=== PATIENT | male | born 1955 | race Caucasian/White ===

== ENCOUNTER → 2019-01-11 16:14 | Outpatient (CLI) | payer MEDICARE, SELFPAY ==
[2019-01-11 16:45] LABS: Add Manual Diff / Slide Review NO; Basophils Absolute Auto 0 /uL (0-100); Basophils Percent Auto 0.3 % (0-2); Eosinophils Absolute Auto 200 /uL (0-450); Eosinophils Percent Auto 2.2 % (2-4); Hematocrit 37.6 % (41-53); Hemoglobin 12.4 g/dL (13.5-17.5); Lymphocytes Absolute Auto 1600 /uL (1100-4500); Lymphocytes Percent Auto 23.5 % (25-40); Mean Corpuscular HGB Conc 33.1 % (30-36); Mean Corpuscular Hemoglobin 30.7 PG (26-34); Mean Corpuscular Volume 92.7 fL (80-100); Monocytes Absolute Auto 700 /uL (0-900); Monocytes Percent Auto 10.4 % (3-14); Neutrophils Absolute Auto 4400 /uL (1500-7000); Neutrophils Percent Auto 63.6 % (50-75); Platelet Count 199 X10^3/uL (150-400); Red Blood Cell Count 4.06 X10^6/uL (4.5-5.9); Red Cell Distribution Width 17.2 % (11.6-14.8); White Blood Cell Count 6.9 X10^3/uL (4.5-11.0)
[2019-01-11 17:07] LABS: Blood Urea Nitrogen 12 mg/dL (9-20); Calcium 9.9 mg/dL (8.4-10.2); Carbon Dioxide 28 mmol/L (22-32); Chloride 102 mmol/L (98-107); Estimated Glomerular Filt Rate > 60.0 mL/min (>60); Glucose 102 mg/dL (80-110); HEMOLYSIS < 15 (0-50); Potassium 4.2 mmol/L (3.4-5.1); Sodium 141 mmol/L (137-145)
== END ==
PROVIDERS: Family Provider Family Medicine; PCP Family Medicine; Visit Provider Internal Medicine
DX: M48.062 Spinal stenosis, lumbar region with neurogenic claudication (principal); F32.9 Major depressive disorder, single episode, unspecified; I10 Essential (primary) hypertension
CPT/HCPCS: 36415; 80048; 85025

== ENCOUNTER → 2019-01-31 13:32 | Outpatient (CLI) | payer MEDICARE, SELFPAY ==
[2019-01-31 14:52] LABS: Add Manual Diff / Slide Review NO; Basophils Absolute Auto 0 /uL (0-100); Basophils Percent Auto 0.4 % (0-2); Eosinophils Absolute Auto 300 /uL (0-450); Eosinophils Percent Auto 3.8 % (2-4); Hematocrit 37.1 % (41-53); Lymphocytes Absolute Auto 1300 /uL (1100-4500); Lymphocytes Percent Auto 18.8 % (25-40); Mean Corpuscular HGB Conc 32.3 % (30-36); Mean Corpuscular Hemoglobin 29.9 PG (26-34); Mean Corpuscular Volume 92.6 fL (80-100); Monocytes Absolute Auto 1000 /uL (0-900); Monocytes Percent Auto 14.1 % (3-14); Neutrophils Absolute Auto 4400 /uL (1500-7000); Neutrophils Percent Auto 62.9 % (50-75); Platelet Count 346 X10^3/uL (150-400); Red Blood Cell Count 4.01 X10^6/uL (4.5-5.9); Red Cell Distribution Width 18.4 % (11.6-14.8); White Blood Cell Count 7.1 X10^3/uL (4.5-11.0)
[2019-01-31 15:12] LABS: INR 1.1 (0.9-1.3)
[2019-01-31 15:14] LABS: PTT Partial Thromboplastin Tim 34 SECONDS (26.4-36.2)
[2019-01-31 15:25] LABS: Erythrocyte Sedimentation Rate 37 MM/HR (0-15)
[2019-01-31 16:45] LABS: BUN Creatinine Ratio 18.6 (6-22); Blood Urea Nitrogen 13 mg/dL (9-20); Calcium 9.7 mg/dL (8.4-10.2); Carbon Dioxide 24 mmol/L (22-32); Chloride 103 mmol/L (98-107); Estimated Glomerular Filt Rate > 60.0 mL/min (>60); Glucose 93 mg/dL (80-110); HEMOLYSIS < 15 (0-50); Potassium 4.4 mmol/L (3.4-5.1); Sodium 139 mmol/L (137-145)
[2019-01-31 16:46] LABS: Iron 127 ug/dL (49-181)
[2019-01-31 16:52] LABS: High Sensitivity CRP - Cardiac 6.5 mg/L (1.0-3.0); Prealbumin 21.6 mg/dL (17.6-36.0)
[2019-01-31 17:19] LABS: Ferritin 54.8 ng/mL (17.9-464)
[2019-01-31 22:39] LABS: HEMOLYSIS < 15 (0-50); Percent Iron Saturation 30 % (20-50); Total Iron Binding Capacity 419 ug/dL (261-462); Transferrin 327 mg/dL (206-381)
== END ==
PROVIDERS: PCP Internal Medicine; Visit Provider Internal Medicine
DX: D64.9 Anemia, unspecified (principal); R63.4 Abnormal weight loss; Z01.818 Encounter for other preprocedural examination
CPT/HCPCS: 36415; 80048; 82728; 83540; 83550; 84134; 85025; 85610; 85651; 85730; 86140

== ENCOUNTER 2019-03-16 12:44 | Emergency (ER) | payer MEDICARE, SELFPAY ==
[2019-03-16 12:45] VITALS: BP 157/112; PULSE 84; RESP 14; TEMP 36.7; O2SAT 96
--- NOTE | 2019-03-16 12:46 | ED_ITS ---
HPI - General Adult General Chief complaint: Back Pain/Injury Stated complaint: swelling mass on his back Time Seen by Provider: 03/16/19 12:46 Source: patient Mode of arrival: ambulatory Limitations: no limitations History of Present Illness HPI narrative: Approximately 1 month ago patient went a lower lumbar laminectomy at [facility]. He states that since that time he has had some swelling in his lower back which seemed to go away with icing but then would return. No fevers. He went to his primary doctor today to have the stitches removed and after they evaluate the patient to notice swelling the patient's stated that his primary doctor told him he should go back to by [facility] however when they called [facility] he was told to come to the nearest emergency department. Denies any fevers. Minimal pain. No drainage from the area. Related Data Home Medications Medication Instructions Recorded Confirmed acetaminophen 1,000 mg PO QID PRN 03/16/19 03/16/19 amlodipine 5 mg PO DAILY 03/16/19 03/16/19 ferrous sulfate 325 mg PO DAILY 03/16/19 03/16/19 mvoaufrcvvmz-khi-doel-FA-vit K 1 tab PO DAILY 03/16/19 03/16/19 [Adults Multivitamin] ondansetron 4 mg PO Q8H PRN 03/16/19 03/16/19 Previous Rx's Medication Instructions Recorded fluoxetine 20 mg PO QDAY #90 tab 12/04/16 omeprazole 20 mg PO QDAY #90 cap 12/04/16 lisinopril 20 mg tablet 20 mg PO BID #60 tab 10/06/18 Allergies Allergy/AdvReac Type Severity Reaction Status Date / Time No Known Drug Allergies Allergy Verified 03/16/19 12:58 Review of Systems Constitutional Denies fever(s) Cardiovascular Denies chest pain and Denies dyspnea Respiratory Denies dyspnea Gastrointestinal Gastrointestinal: Denies abdominal pain Musculoskeletal Denies myalgias and Denies arthralgias Integumentary/Breasts Comments: Well-healing surgical scar lower back Neurologic Denies behavioral changes Psychiatric Denies behavioral changes Hematologic/Lymphatic Denies easy bleeding and Denies easy bruising [facility] Medical History Hypertension (Acute) Surgical History History of spinal fusion (06/26/15) Family History (Updated 04/18/15 @ 00:00 by Conversion Provider) Brother Age: 71 Heart disease Social History Smoking Status: Former smoker Family History (Updated 04/18/15 @ 00:00 by Conversion Provider) Brother Age: 71 Heart disease Social History Smoking Status: Former smoker Exam Initial Vital Signs Initial Vital Signs: Vital Signs Temperature 98.1 F 03/16/19 12:45 Pulse Rate 84 03/16/19 12:45 Respiratory Rate 14 03/16/19 12:45 Blood Pressure 157/112 H 03/16/19 12:45 Pulse Oximetry 96 03/16/19 12:45 Const General: cooperative, comfortable, well developed, well groomed and No acute di stress Orientation: alert and awake HENMT Head: normal to inspection and normocephalic Resp Effort & Inspection: normal respiratory effort Auscultation: clear to auscultation bilaterally Cardio Rate: regular rate Rhythm: regular rhythm Pulses: radial pulses present Back/Spine/Pelvis Other: Patient with a football sized swelling in the lower lumbar region. Does not seem to be tender to palpation. Normal lying redness. Skin Other: Well healing surgical scar lower lumbar region. No drainage. Neuro General: alert and awake Extrem General: capillary refill normal Psych Appearance: grossly normal and well kempt Course Orders Ordered: ED Orders 03/16/19 13:08 Basic Metabolic Panel Stat C-Reactive Protein Quant Stat Complete Blood Count AUTO DIFF Stat Erythrocyte Sedimentation Rate Stat Lactate (Lactic Acid) Stat Procalcitonin Stat Vital Signs - 8 hr 03/16/19 12:45 03/16/19 14:02 03/16/19 16:05 Temperature 98.1 F 98.3 F Pulse Rate 84 66 73 Respiratory Rate 14 18 20 Blood Pressure 157/112 H 144/88 H Blood Pressure [Left Arm] 139/83 Pulse Oximetry 96 97 100 Medical Decision Making Lab Data Lab results reviewed: Yes I reviewed the patient's lab results. Result diagrams: 03/16/19 13:08 03/16/19 13:08 Lab Results 03/16/19 03/16/19 03/16/19 Range/Units 13:08 13:08 13:08 WBC 5.8 (4.5-11.0) X10^3/uL RBC 3.85 L (4.5-5.9) X10^6/uL Hgb 11.0 L (13.5-17.5) g/dL Hct 33.7 L (41-53) % MCV 87.6 (80-100) fL MCH 28.6 (26-34) PG MCHC 32.6 (30-36) % RDW 15.5 H (11.6-14.8) % Plt Count 273 (150-400) X10^3/uL Neut % (Auto) 63.3 (50-75) % Lymph % (Auto) 18.5 L (25-40) % Holmes % (Auto) 16.1 H (3-14) % Eos % (Auto) 1.7 L (2-4) % Baso % (Auto) 0.4 (0-2) % Neut # (Auto) 3700 (7318-9155) /uL Lymph # (Auto) 1100 (2875-7873) /uL Holmes # (Auto) 900 (0-900) /uL Eos # (Auto) 100 (0-450) /uL Baso # (Auto) 0 (0-100) /uL ESR 37 H (0-15) MM/HR Sodium 138 (137-145) mmol/L Potassium 3.8 (3.4-5.1) mmol/L Chloride 102 (98-107) mmol/L Carbon Dioxide 26 (22-32) mmol/L BUN 11 (9-20) mg/dL Creatinine 0.60 L (0.66-1.25) mg/dL Estimated GFR > 60.0 (>60) mL/min BUN/Creatinine Ratio 18.3 (6-22) Glucose 111 H (80-110) mg/dL Lactate (0.7-2.1) mmol/L Calcium 9.6 (8.4-10.2) mg/dL C-Reactive Protein 1.4 H (<1.0) mg/dL Procalcitonin < 0.05 (<0.5) ng/mL 03/16/19 Range/Units 13:08 WBC (4.5-11.0) X10^3/uL RBC (4.5-5.9) X10^6/uL Hgb (13.5-17.5) g/dL Hct (41-53) % MCV (80-100) fL MCH (26-34) PG MCHC (30-36) % RDW (11.6-14.8) % Plt Count (150-400) X10^3/uL Neut % (Auto) (50-75) % Lymph % (Auto) (25-40) % Holmes % (Auto) (3-14) % Eos % (Auto) (2-4) % Baso % (Auto) (0-2) % Neut # (Auto) (4009-0067) /uL Lymph # (Auto) (9769-2606) /uL Holmes # (Auto) (0-900) /uL Eos # (Auto) (0-450) /uL Baso # (Auto) (0-100) /uL ESR (0-15) MM/HR Sodium (137-145) mmol/L Potassium (3.4-5.1) mmol/L Chloride (98-107) mmol/L Carbon Dioxide (22-32) mmol/L BUN (9-20) mg/dL Creatinine (0.66-1.25) mg/dL Estimated GFR (>60) mL/min BUN/Creatinine Ratio (6-22) Glucose (80-110) mg/dL Lactate 0.9 (0.7-2.1) mmol/L Calcium (8.4-10.2) mg/dL C-Reactive Protein (<1.0) mg/dL Procalcitonin (<0.5) ng/mL MDM Narrative Medical decision making narrative: I discussed the case with the transfer center at [facility] about his case. I gave the transfer nurse the patient's information and physical exam and labs. She talked with the orthopedic provider who was in surgery who stated that based on my description the patient did not need to be emergently transferred. They stated that they would like to see him tomorrow in clinic. They are going to call him for an appointment. The patient was given a copy of his labs. He was also instructed that he should be receiving a call however he does not he should call them for an appointment. He was given return precautions. I do have a low suspicion for an abscess. Will hold on any antibiotics. Hold on any radiologic studies and let the orthopedic providers make that decision. I have a stronger suspicion for a seroma. Patient and his expressed understanding and agreement this plan. Discharge Plan Departure Patient Disposition: Home Clinical Impression: Post-operative complication Qualifiers: Surgical complication system/body Area: [id number] Encounter type: initial encounter Discharge Date/Time: 03/16/19 16:06 Interventions: ED Discharge Assessment Last Done: 03/16/19 16:05 Activity Restrictions/Additional Instructions: You should be receiving a call from the Orthopedic Spine Department from [facility] for a follow-up appointment tomorrow. Continue all of your medications as directed. Return to the emergency department for any new or worsening symptoms Prescriptions: No Action fluoxetine 20 MG tablet 20 mg PO QDAY Qty: 90 RF: 11 omeprazole 20 MG capsule,delayed release(DR/EC) 20 mg PO QDAY Qty: 90 RF: 3 lisinopril 20 mg tablet 20 mg PO BID Qty: 60 RF: 0 amlodipine 5 mg tablet 5 mg PO DAILY RF: 0 acetaminophen 500 mg Tablet 1,000 mg PO QID PRN (Reason: pain/fever) RF: 0 ferrous sulfate 325 mg (65 mg iron) Tablet,Delayed Release (Dr/Ec) 325 mg PO DAILY RF: 0 ondansetron 4 mg Tablet,Disintegrating 4 mg PO Q8H PRN (Reason: nausea / vomiting) RF: 0 Adults Multivitamin 18 mg iron-400 mcg-25 mcg Tablet 1 tab PO DAILY RF: 0 Referrals: Leonard Leal MD [Primary Care Provider] -
[2019-03-16 13:17] LABS: Add Manual Diff / Slide Review NO; Basophils Absolute Auto 0 /uL (0-100); Basophils Percent Auto 0.4 % (0-2); Eosinophils Absolute Auto 100 /uL (0-450); Eosinophils Percent Auto 1.7 % (2-4); Hematocrit 33.7 % (41-53); Lymphocytes Absolute Auto 1100 /uL (1100-4500); Lymphocytes Percent Auto 18.5 % (25-40); Mean Corpuscular HGB Conc 32.6 % (30-36); Mean Corpuscular Hemoglobin 28.6 PG (26-34); Mean Corpuscular Volume 87.6 fL (80-100); Monocytes Absolute Auto 900 /uL (0-900); Monocytes Percent Auto 16.1 % (3-14); Neutrophils Absolute Auto 3700 /uL (1500-7000); Neutrophils Percent Auto 63.3 % (50-75); Platelet Count 273 X10^3/uL (150-400); Red Blood Cell Count 3.85 X10^6/uL (4.5-5.9); Red Cell Distribution Width 15.5 % (11.6-14.8); White Blood Cell Count 5.8 X10^3/uL (4.5-11.0)
[2019-03-16 13:28] LABS: Lactate (Lactic Acid) 0.9 mmol/L (0.7-2.1)
[2019-03-16 13:36] LABS: BUN Creatinine Ratio 18.3 (6-22); Blood Urea Nitrogen 11 mg/dL (9-20); C-Reactive Protein Quant 1.4 mg/dL (<1.0); Calcium 9.6 mg/dL (8.4-10.2); Carbon Dioxide 26 mmol/L (22-32); Chloride 102 mmol/L (98-107); Estimated Glomerular Filt Rate > 60.0 mL/min (>60); Glucose 111 mg/dL (80-110); HEMOLYSIS < 15 (0-50); Potassium 3.8 mmol/L (3.4-5.1); Sodium 138 mmol/L (137-145)
[2019-03-16 13:42] LABS: Erythrocyte Sedimentation Rate 37 MM/HR (0-15)
[2019-03-16 13:50] LABS: Procalcitonin < 0.05 ng/mL (<0.5)
[2019-03-16 14:02] VITALS: BP 139/83; PULSE 66; RESP 18; TEMP 36.8; O2SAT 97
[2019-03-16 16:05] VITALS: BP 144/88; PULSE 73; RESP 20; O2SAT 100
== END 2019-03-16 16:06 | disposition home or self-care (01) ==
PROVIDERS: Emergency Provider Emergency Medicine; PCP Internal Medicine
DX: T81.9XXA Unspecified complication of procedure, initial encounter (principal); R22.9 Localized swelling, mass and lump, unspecified
CPT/HCPCS: 36591; 80048; 83605; 84145; 85025; 85651; 86140; 99283

== ENCOUNTER → 2021-07-03 07:36 | Outpatient (CLI) | payer MEDICARE, SELFPAY ==
--- NOTE | 2021-07-03 | DI.US.S_ITS ---
PROCEDURE: US ABD AORTA ANEURYSM SCREEN INDICATIONS: SCREENING TECHNIQUE: Real time scanning was performed of the aorta and iliac arteries, with image documentation. COMPARISON: None. FINDINGS: Aorta: Proximal aortic diameter measures 2.6 cm. Mid-aorta measures 2.3 cm. Distal aortic diameter is 2.0 cm. Trace plaque is noted. Iliac arteries: Right common iliac artery measures 1.4 cm. Left common iliac artery measures 1.1 cm. IMPRESSION: 1. 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 Recommend 5 year follow-up. 2. No abdominal aortic aneurysm. Dictated by: Lito Mariano M.D. on 07/03/2021 at 9:55 Approved by: Lito Mariano M.D. on 07/03/2021 at 9:56
== END ==
PROVIDERS: PCP Internal Medicine; Referring Provider Internal Medicine; Visit Provider Internal Medicine
DX: Z13.6 Encounter for screening for cardiovascular disorders (principal); I77.811 Abdominal aortic ectasia
CPT/HCPCS: 76706

== ENCOUNTER → 2022-02-18 11:05 | Outpatient (CLI) | payer OTHER, SELFPAY ==
[2022-02-18 12:13] LABS: COVID19 -Nasal RAPID Negative (Negative)
== END ==
PROVIDERS: PCP Internal Medicine; Visit Provider Surgery
DX: Z20.822 Contact with and (suspected) exposure to COVID-19 (principal); Z01.812 Encounter for preprocedural laboratory examination
CPT/HCPCS: 87635; C9803

== ENCOUNTER 2022-02-19 07:32 | Day surgery (SDC) | payer OTHER, SELFPAY ==
[2022-02-12 12:48] VITALS: BMI 31.7
[2022-02-19] VITALS (11 sets, daily range): BP systolic 124–159; BP diastolic 74–98; PULSE 70–96; RESP 10–16; TEMP 36.2–37.1; O2SAT 90–98; BMI 30.9
[2022-02-19] MEDS: LACTATED RINGERS 1,000 ML 100 ML IV (08:14)
--- NOTE | 2022-02-19 08:30 | PM.PREOP ---
Pre-operative Note Interval Note History & Physical reviewed/Exam performed by Physician: Yes Changes to H&P: No
--- NOTE | 2022-02-19 08:35 | PM.OP.1 ---
Operative Date/Time/Diagnoses Date of procedure: 02/19/22 Time of procedure: 08:36 Pre-op diagnosis: right inguinal hernia Post-op diagnosis: same Procedure & Clinicians Procedure: open right inguinal hernia repair Same procedure as scheduled: Yes Indications: reducible right inguinal hernia Surgeon: Neftaly Abreu Anesthesia Type: General Operative Notes Findings: Large bowel containing indirect hernia. No direct floor defect. Specimen(s): none sent Estimated Blood Loss (mL): 10 Procedure in detail: The patient was placed supine on the table and bilateral lower extremity compression devices were applied. Anesthesia was induced they were intubated with an LMA and received Ancef. A time-out was performed. They were prepped and draped in sterile fashion. The right external inguinal ring and the anterior superior iliac crest were identified and marked. 1 finger breath above the inguinal ligament the skin was infiltrated with 0.25% bupivacaine. The skin incision was made here and the subcutaneous tissues were divided with electrocautery exposing the external oblique aponeurosis which was then opened along the direction of its fibers. The cord was carefully dissected away from the inguinal canal adjacent to the pubic tubercle. The cord including the vas deferens, testicular bloody supply, ilioguinal and genital nerve were encircled with a Elsa drain. No direct floor defect was identified. The cremasteric fibers surrounding the cord were divided using electrocautery adjacent to the internal ring. There was a large bowel containing indirect hernia which was seperated from the cord. The vas deferens and the testicular vessels were preserved and protected. The indirect hernia was skeletonized back to the internal ring and reduced spontaneously into the abdomen. I selected a 7x 15 cm lightweight Pro Loop hernia mesh. The inferior medial aspect of the mesh was anchored to insertion of the rectus muscle to the pubic tubercle such that there was approximately 2 cm of tubercle overlap with Ethibond and then was run continuously along the inferior edge of the mesh to the shelving edge of the inguinal ligament. Interrupted 3 0 Vicryl suture was used to anchor the superior aspect of the mesh to the conjoined tendon in several places. A plug of mesh was placed into the internal ring and secured to the adjacent fascia. The tails were then reapproximated loosely around the spermatic cord. The tails of the mesh were then tucked under the external oblique aponeurosis. The repair was checked for hemostasis. The wound was irrigated with sterile saline. The external oblique aponeurosis was reapproximated in a running fashion using 3 0 Vicryl. The subcutaneous tissues were reapproximated with 3 0 Vicryl skin closed with 4 0 Monocryl followed by the application of Dermabond. At the end of the operation I ensured that both testicles were within the scrotum. The sponge instrument count at the end operation was correct. The patient emerged from anesthesia was extubated and transferred to the postoperative care unit in stable condition. A total of 30 ml of of 0.25% bupivicaine was used to infiltrate the skin. Complications: none Post-operative Condition: stable Disposition: same day surgery
[2022-02-19] MEDS: CEFAZOLIN 2 GM/20 ML SYRINGE IV (08:57)
--- NOTE | 2022-02-19 09:01 | SUR.OPER ---
Supine on padded OR bed, head on pillow, arms secured on padded arm boards at <90 degrees abduction, legs uncrossed, safety belt at thigh. directed and approved by surgical attending
[2022-02-19] MEDS: BUPIVACAINE 0.25% (PF) VIAL 30 ML INJ (09:08)
[2022-02-19] MEDS: OXYCODONE IR 5 MG TABLET PO (10:32)
[2022-02-19] MEDS: ACETAMINOPHEN 325 MG TABLET 650 MG PO (10:32)
--- NOTE | 2022-02-19 11:26 | SUR.PHASEII ---
Pt getting dressed. Ready for Discharge. Son called. Will be here at 12DD:30. Pt to rest in bed and ice groin. Drinking coffee at this time.
--- NOTE | 2022-02-19 12:10 | SUR.PHASEII ---
Report to Kevin YO
== END 2022-02-19 12:30 | disposition home or self-care (01) ==
PROVIDERS: PCP Internal Medicine; Referring Provider Surgery; Visit Provider Surgery
PROC: (CPT 49505; principal; 2022-02-19 08:45)
DX: K40.90 Unilateral inguinal hernia, without obstruction or gangrene, not specified as recurrent (principal); I10 Essential (primary) hypertension; G47.33 Obstructive sleep apnea (adult) (pediatric); K21.9 Gastro-esophageal reflux disease without esophagitis; F41.9 Anxiety disorder, unspecified; E78.5 Hyperlipidemia, unspecified
CPT/HCPCS: 49505; 82962; J0690; J1885; J2405; J2704; J3010

== ENCOUNTER → 2022-06-05 10:31 | Outpatient (CLI) | payer OTHER, SELFPAY ==
--- NOTE | 2022-06-05 | DI.RAD.S_ITS ---
PROCEDURE: XR SHOULDER LT MIN 2V INDICATIONS: cough post-covid TECHNIQUE: 3 views of the shoulder were acquired. COMPARISON: [facility], , SHOULDER MINIMUM 2 VIEW LEFT, 04/19/2015, 14:56. FINDINGS: Bones: No acute fractures or dislocations. No suspicious bony lesions. Visualized ribs appear intact. Moderate degenerative changes of the left acromioclavicular joint. Mild degenerative changes of the glenohumeral joint. Postsurgical changes of cervical thoracic spinal fusion and anterior cervical fusion. No evidence for hardware failure. Soft tissues: No suspicious soft tissue calcifications. IMPRESSION: Left shoulder without acute fracture or dislocation. 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 Dictated by: Enrike Naidu M.D. on 06/05/2022 at 11:01 Approved by: Enrike Naidu M.D. on 06/05/2022 at 11:03
== END ==
PROVIDERS: PCP Internal Medicine; Referring Provider Internal Medicine; Visit Provider Internal Medicine
DX: M25.512 Pain in left shoulder (principal); G89.29 Other chronic pain
CPT/HCPCS: 73030

== ENCOUNTER → 2022-11-10 11:02 | Outpatient (CLI) | payer MEDICARE, SELFPAY ==
[2022-11-10 12:20] LABS: Add Manual Diff / Slide Review NO; Basophils Absolute Auto 0 /uL (0-100); Basophils Percent Auto 0.2 % (0-2); Eosinophils Absolute Auto 300 /uL (0-450); Eosinophils Percent Auto 4.1 % (2-4); Lymphocytes Absolute Auto 1900 /uL (1100-4500); Lymphocytes Percent Auto 28.1 % (25-40); Mean Corpuscular HGB Conc 33.2 % (30-36); Mean Corpuscular Hemoglobin 27.7 PG (26-34); Mean Corpuscular Volume 83.3 fL (80-100); Monocytes Absolute Auto 500 /uL (0-900); Monocytes Percent Auto 7.8 % (3-14); Neutrophils Absolute Auto 4000 /uL (1500-7000); Neutrophils Percent Auto 59.8 % (50-75); Platelet Count 316 X10^3/uL (150-400); Red Blood Cell Count 4.68 X10^6/uL (4.5-5.9); Red Cell Distribution Width 14.8 % (11.6-14.8); White Blood Cell Count 6.6 X10^3/uL (4.5-11.0)
[2022-11-10 12:31] LABS: Hemoglobin A1C% w Est Avg Glu 5.8 % (4.0-6.0)
[2022-11-10 12:47] LABS: Alanine Aminotransferase 21 IU/L (<50); Albumin 4.1 g/dL (3.5-5.0); Albumin Globulin Ratio 1.2 (1.0-2.8); Alkaline Phosphatase 77 U/L (38-126); Aspartate Aminotransferase 28 IU/L (17-59); BUN Creatinine Ratio 23.5 (6-22); Bilirubin Total 0.3 mg/dL (0.2-1.3); Blood Urea Nitrogen 16 mg/dL (9-20); Calcium 8.8 mg/dL (8.4-10.2); Carbon Dioxide 29 mmol/L (22-32); Chloride 105 mmol/L (98-107); Cholesterol 177 mg/dL (140-199); Estimated Glomerular Filt Rate > 60 mL/min (>60); Globulin 3.4 g/dL (1.7-4.1); Glucose 94 mg/dL (80-110); HDL Cholesterol 40 mg/dL (40-60); HEMOLYSIS < 15 (0-50); LDL Cholesterol Calculated 124 mg/dL (<100); Potassium 4.1 mmol/L (3.4-5.1); Sodium 143 mmol/L (137-145); Total Protein 7.5 g/dL (6.3-8.2); Triglycerides 65 mg/dL (35-150)
[2022-11-10 13:17] LABS: Prostate Specific Antigen Scrn 1.32 ng/mL (0.1-4.0)
== END ==
PROVIDERS: PCP Family Medicine; Referring Provider Family Medicine; Visit Provider Family Medicine
DX: E78.5 Hyperlipidemia, unspecified (principal); Z12.5 Encounter for screening for malignant neoplasm of prostate; I10 Essential (primary) hypertension; G47.33 Obstructive sleep apnea (adult) (pediatric); N40.1 Benign prostatic hyperplasia with lower urinary tract symptoms; R39.14 Feeling of incomplete bladder emptying; Z78.9 Other specified health status
CPT/HCPCS: 36415; 80053; 80061; 83036; 85025; G0103

== ENCOUNTER → 2022-11-14 10:27 | Outpatient (CLI) | payer MEDICARE, SELFPAY ==
--- NOTE | 2022-11-14 10:29 | DI.US.S_ITS ---
PROCEDURE: US PERIPH VENOUS LOW EXTREM RT INDICATIONS: Please evaluate for DVT TECHNIQUE: Real-time imaging, as well as color and pulse Doppler interrogation, were performed of the lower extremity deep veins from the inguinal ligament to the popliteal fossa. COMPARISON: None. FINDINGS: The common femoral, femoral and popliteal veins are normally compressible, and free of intraluminal thrombus. Color and pulse Doppler demonstrate normal phasic intraluminal flow. There is normal augmentation response to distal compression maneuver. There is a Sibley's cyst seen that measures 5.2 x 1.8 x 2.4 cm, which demonstrates a complex appearance, without abnormal vascularity. IMPRESSION: Negative for deep venous thrombosis. Complex Sibley's cyst noted, likely with internal hemorrhage. Dictated by: Albert Olsen M.D. on 11/14/2022 at 11:06 Approved by: Albert Olsen M.D. on 11/14/2022 at 11:07
== END ==
PROVIDERS: PCP Family Medicine; Referring Provider Family Medicine; Visit Provider Family Medicine
DX: M79.89 Other specified soft tissue disorders (principal); M71.21 Synovial cyst of popliteal space [Baker], right knee
CPT/HCPCS: 93971

== ENCOUNTER 2023-01-10 00:26 | Emergency (ER) | payer MEDICARE, SELFPAY ==
[2023-01-10 01:00] VITALS: BP 123/64; PULSE 76; RESP 16; TEMP 36.9; O2SAT 96; BMI 36.3
--- NOTE | 2023-01-10 01:19 | DI.CT.S_ITS ---
PROCEDURE: CT SOFT TISSUE NECK W CON INDICATIONS: R sided neck jaw swelling, rapidly worsening, trouble swallo TECHNIQUE: After the administration of intravenous contrast, 3.0 mm axial sections acquired from the sella to the aortic arch. Additional oblique axial 3.0 mm sections acquired through the pharynx. 3 mm thick coronal and sagittal reformats were generated. For radiation dose reduction, the following was used: automated exposure control. COMPARISON: None. FINDINGS: Image quality: Somewhat limited given artifact from dental and spinal hardware. Lymph nodes: No enlarged lymph nodes seen throughout the neck. Vessels: Visualized vasculature appears patent. Calcifications are noted at the carotid bifurcations with less than 50 percent stenosis within limits of this non dedicated study. Neck spaces: The oropharynx, nasopharynx, and pharynx demonstrate no mucosal lesions. The vocal cords, false vocal cords, pyriform sinuses, epiglottis, vallecula, and tongue base all appear normal. Extramucosal spaces appear unremarkable. Glands: The left parotid and submandibular glands are unremarkable. There is slight heterogeneous enhancement of the right parotid gland. There is inflammation extending along the inferior aspect of the parotid gland into the cervical soft tissues adjacent to the superior aspect of the submandibular gland along the sternocleidomastoid muscle. The platysma is mildly thickened. Thyroid gland is unremarkable. Miscellaneous: Visualized brain and orbits appear normal. Lung apices appear clear. Superficial soft tissues appear normal. Bones: Diffuse postsurgical changes of the cervical and upper thoracic spine limited by hardware artifact. No acute osseous abnormality. There is moderate left temporomandibular joint degenerative changes. Visualized sinuses and mastoids appear unremarkable. IMPRESSION: Findings most consistent with right parotitis. Agree with preliminary report. Dictated by: Amilcar Kim D.O. on 01/10/2023 at 9:36 Approved by: Amilcar Kim D.O. on 01/10/2023 at 9:41
--- NOTE | 2023-01-10 01:21 | ED.SKABFB ---
HPI - Skin/Abscess/Foreign Bdy General Chief complaint: Skin/Abscess/Foreign Body Stated complaint: lt. cheek swollen/numb Time Seen by Provider: 01/10/23 00:40 Source: patient Mode of arrival: Ambulatory Limitations: no limitations History of Present Illness HPI narrative: 67M former smoker with history of HTN presents with rapidly worsening R side face and jaw pain and swelling that started tonight at about midnight. He denies any injury. He denies fever, chills nor nausea or vomiting. He does state that when he was taking his night meds it was hard for him to swallow. He is not having trouble controlling secretions and denies any trouble breathing. He denies any dental pain. Related Data Home Medications Medication Instructions Recorded Confirmed amlodipine 10 mg tablet 10 mg PO DAILY 01/30/22 12/15/22 cholecalciferol (vitamin D3) 50 50 mcg PO DAILY 01/30/22 12/15/22 mcg (2,000 unit) capsule coenzyme Q10 100 mg capsule 200 mg PO DAILY 01/30/22 12/15/22 (CoQ-10) rosuvastatin 10 mg tablet 10 mg PO DAILY 01/30/22 12/15/22 vitamin B complex no.10-FA 1 tab PO DAILY 01/30/22 12/15/22 magnesium glycinate 100 mg tablet 665 mg PO TID 02/12/22 12/15/22 Previous Rx's Medication Instructions Recorded omeprazole 20 mg capsule,delayed 20 mg PO QDAY #90 caps 12/04/16 release acetaminophen 325 mg capsule 650 mg PO QID PRN pain #60 caps 02/19/22 (Tylenol) tamsulosin 0.4 mg capsule (Flomax) 0.4 mg PO BEDTIME #90 caps 10/14/22 chlorthalidone 25 mg tablet 25 mg PO DAILY blood pressure #90 11/14/22 tabs escitalopram oxalate 10 mg tablet 10 mg PO DAILY #90 tabs 12/09/22 (Lexapro) Disabled parking permit #1 ea 12/15/22 Allergies Allergy/AdvReac Type Severity Reaction Status Date / Time No Known Drug Allergies Allergy Verified 12/15/22 10:01 Review of Systems Review of Systems Narrative: GENERAL: Denies chills, fatigue, malaise, fever, sweats. HEENT: See HPI RESPIRATORY: Denies dyspnea, cough, wheezing, hemoptysis, sputum. CARDIOVASCULAR: Denies chest pain, palpitations, orthopnea, edema, GASTROINTESTINAL: Denies nausea, vomiting, abdominal pain, diarrhea, constipation, melena. : Denies dysuria, frequency, incontinence, hematuria, urinary retention. MUSCULOSKELETAL: denies weakness, joint pain, or bony pain SKIN: Denies rash, skin lesions, or other NEUROLOGIC: Denies weakness, headache, numbness, change in speech, confusion, seizures, incoordination. PSYCHIATRIC: No concerning psychosocial issues. 12 point review of systems is negative except for those stated above Patient History Medical History ADHD Alcohol use Anxiety Arthritis Benign essential HTN Bowel obstruction BPH (benign prostatic hyperplasia) Cataracts, bilateral (~2009) Depression Gait instability GERD (gastroesophageal reflux disease) Gout Heart murmur Hemorrhoid History of arthritis Hyperlipidemia Kidney stones (~1993) Lumbar back pain (~2014) Neuropathy LINDA (obstructive sleep apnea) (~2005) Rupture of popliteal cyst Substance abuse Surgical History Anesthesia History of carpal tunnel surgery of left wrist (1992) History of hernia repair (~2021) History of lumbar surgery History of major orthopedic surgery History of orthopedic surgery History of spinal fusion (06/26/15) History of total left knee replacement (2013) Hx of colonoscopy (2013) Hx of removal of cyst (1994) S/P cervical spinal fusion (2017) S/P total knee arthroplasty Family History Brother Age: 75 Heart disease Cancer Father Diabetes mellitus Stroke Prostate cancer Mother Cancer Mental health problem Sister Alzheimer's disease Mental health problem Grandfather Liver disease Grandmother Congestive heart failure Mental health problem Grandfather Cancer Social History marital status: household members: spouse lives independently: Yes occupational status: previously employed Smoking Status: Former smoker alcohol intake: former Smoking Status: Former smoker alcohol intake frequency: other Substance Use Type: marijuana Exam Narrative Exam Narrative: GENERAL: [67] year old patient appears stated age. Well-developed patient, in mild distress. HEAD: Atraumatic. Normocephalic. EYES: Pupils equal round and reactive. Extraocular motions intact. No scleral icterus. No injection or drainage. ENT: Moderate swelling over right lateral jaw and superior neck, no erythema or fluctuance. Nose without bleeding, purulent drainage. Throat without erythema, tonsillar hypertrophy or exudate. Airway patent. NECK: See above Trachea midline. Non tender CARDIOVASCULAR: Regular rate and rhythm without murmurs, gallops, or rubs. RESPIRATORY: Clear to auscultation. Breath sounds equal bilaterally. No wheezes, rales, or rhonchi. GASTROINTESTINAL: Abdomen soft, non-tender, nondistended. EXTREMITIES: No edema or joint tenderness. BACK: Nontender without deformity or crepitance. No flank tenderness. NEURO: AOx3. SKIN: No rash or erythema of visible areas Initial Vital Signs Initial Vital Signs: Vital Signs Temperature 98.4 F 01/10/23 01:00 Pulse Rate 76 01/10/23 01:00 Respiratory Rate 16 01/10/23 01:00 Blood Pressure 123/64 01/10/23 01:00 Pulse Oximetry 96 01/10/23 01:00 Oxygen Delivery Method Room Air 01/10/23 01:00 Course Orders Ordered: ED Orders 01/10/23 01:19 CT soft tissue neck w con Stat 01/10/23 01:34 Complete Blood Count AUTO DIFF Stat Comprehensive Metabolic Panel Stat Discontinued Medications Amoxicillin/Clavulanate Potassium (Amoxicillin/Clav 875/125 Mg) 1 tab PO NOW ONE Stop: 01/10/23 03:17 Dexamethasone (Dexamethasone 10 Mg/Ml Vial) 10 mg IV NOW ONE Stop: 01/10/23 01:20 Last Admin: 01/10/23 01:49 Dose: 10 mg Documented By: ASIYA Ketorolac Tromethamine (Ketorolac 30 Mg/Ml Vial) 15 mg IV NOW ONE Stop: 01/10/23 01:20 Last Admin: 01/10/23 01:49 Dose: 15 mg Documented By: ASIYA Vital Signs Vital signs: Vital Signs - 8 hr 01/10/23 01:00 01/10/23 03:02 Temperature 98.4 F Pulse Rate 76 69 Respiratory Rate 16 18 Blood Pressure 123/64 123/72 Pulse Oximetry 96 97 Oxygen Delivery Method Room Air Room Air MDM - Skin/Abscess/Foreign Bdy Lab Data 01/10/23 01:34 01/10/23 01:34 Labs: Lab Results 01/10/23 01/10/23 Range/Units 01:34 01:34 WBC 10.2 (4.5-11.0) X10^3/uL RBC 5.06 (4.5-5.9) X10^6/uL Hgb 14.7 (13.5-17.5) g/dL Hct 43.1 (41-53) % MCV 85.1 (80-100) fL MCH 28.9 (26-34) PG MCHC 34.0 (30-36) % RDW 15.8 H (11.6-14.8) % Plt Count 251 (150-400) X10^3/uL Neut % (Auto) 55.9 (50-75) % Lymph % (Auto) 28.3 (25-40) % [place] % (Auto) 11.2 (3-14) % Eos % (Auto) 4.3 H (2-4) % Baso % (Auto) 0.3 (0-2) % Neut # (Auto) 5700 (7878-6557) /uL Lymph # (Auto) 2900 (6166-4110) /uL [place] # (Auto) 1100 H (0-900) /uL Eos # (Auto) 400 (0-450) /uL Baso # (Auto) 0 (0-100) /uL Sodium 140 (137-145) mmol/L Potassium 3.6 (3.4-5.1) mmol/L Chloride 99 (98-107) mmol/L Carbon Dioxide 27 (22-32) mmol/L BUN 20 (9-20) mg/dL Creatinine 0.91 (0.66-1.25) mg/dL Estimated GFR > 60 (>60) mL/min BUN/Creatinine Ratio 22.0 (6-22) Glucose 136 H (80-110) mg/dL Calcium 9.1 (8.4-10.2) mg/dL Total Bilirubin 0.5 (0.2-1.3) mg/dL AST 31 (17-59) IU/L ALT 31 (<50) IU/L Alkaline Phosphatase 66 (38-126) U/L Total Protein 8.3 H (6.3-8.2) g/dL Albumin 4.8 (3.5-5.0) g/dL Globulin 3.5 (1.7-4.1) g/dL Albumin/Globulin Ratio 1.4 (1.0-2.8) MDM Narrative Medical decision making narrative: [67] year old patient presents with sudden-onset right-sided face pain and swelling Multiple etiologies for patient's symptoms considered including, but not limited to: [Sialadenitis, abscess, versus other] Prior Charts reviewed in our EMR Primary Historian: patient Labs reviewed and interpreted by myself: Imaging reviewed: Right parotitis without evidence of abscess Patient's symptoms improved over duration of stay with above-stated therapies. Parotitis on imaging, no signs of abscess. No elevated white blood cells, no fever. No indication for antibiotics at this time. I discussed return precautions, encouraged close follow-up with ENT Findings and discharge diagnosis discussed with patient/family followed by verbalization of understanding Return precautions discussed with patient/family whom verbalize understanding of diagnosis and plan Discharge Plan Departure Patient Disposition: Home Clinical Impression: Acute parotitis Instructions: DI for Parotitis-Adult Activity Restrictions/Additional Instructions: *You have been diagnosed with [swollen parotid gland. As we discussed your history and physical exam are reassuring and in the absence of fever, obvious infection on imaging or labs there is no indication for antibiotics at this time.] *What to do: *Please consider the use of warm compresses, anti-inflammatories and also get yourself some hard candies which will help you increase saliva production which can help move this along. Otherwise continue to take your regular medications as directed * as we discussed please call Dr. Cheung at [facility] later this morning. Let the office know you were seen in the emergency department and we would like you seen in follow-up. I will electronically transmitted a copy of today's note to their office *Return to Emergency Department if you should have any new, worsening or concerning symptoms, such as [fever greater than 101 F, shaking chills, worsening pain, persistent vomiting or other bothersome symptoms] Prescriptions: No Action omeprazole 20 MG capsule,delayed release(DR/EC) 20 mg PO QDAY Qty: 90 3RF escitalopram oxalate [Lexapro] 10 mg tablet 10 mg PO DAILY Qty: 90 3RF tamsulosin [Flomax] 0.4 mg capsule 0.4 mg PO BEDTIME Qty: 90 3RF chlorthalidone 25 mg tablet 25 mg PO DAILY Qty: 90 3RF (DME) Disabled parking permit See Rx Instructions .ROUTE .MEDSUPPLY Qty: 1 0RF Rx Instructions: I find this patient to be medically disabled and qualified for disabled parking as indicated, and signed, on the accompanying disabled parking application for individuals. amlodipine 10 mg tablet 10 mg PO DAILY rosuvastatin 10 mg tablet 10 mg PO DAILY cholecalciferol (vitamin D3) 50 mcg (2,000 unit) capsule 50 mcg PO DAILY coenzyme Q10 [CoQ-10] 100 mg capsule 200 mg PO DAILY vitamin B complex no.10-FA 1 tab PO DAILY magnesium glycinate 100 mg Tablet 665 mg PO TID acetaminophen [Tylenol] 325 mg capsule 650 mg PO QID PRN (Reason: pain) Qty: 60 0RF Referrals: Chester Cheung MD [Physician] - Arnel Hammond DO [Primary Care Provider] - Stand Alone Forms: Patient Portal/API
[2023-01-10 01:49] LABS: Add Manual Diff / Slide Review NO; Basophils Absolute Auto 0 /uL (0-100); Basophils Percent Auto 0.3 % (0-2); Eosinophils Absolute Auto 400 /uL (0-450); Eosinophils Percent Auto 4.3 % (2-4); Hematocrit 43.1 % (41-53); Hemoglobin 14.7 g/dL (13.5-17.5); Lymphocytes Absolute Auto 2900 /uL (1100-4500); Lymphocytes Percent Auto 28.3 % (25-40); Mean Corpuscular Hemoglobin 28.9 PG (26-34); Mean Corpuscular Volume 85.1 fL (80-100); Monocytes Absolute Auto 1100 /uL (0-900); Monocytes Percent Auto 11.2 % (3-14); Neutrophils Absolute Auto 5700 /uL (1500-7000); Neutrophils Percent Auto 55.9 % (50-75); Platelet Count 251 X10^3/uL (150-400); Red Blood Cell Count 5.06 X10^6/uL (4.5-5.9); Red Cell Distribution Width 15.8 % (11.6-14.8); White Blood Cell Count 10.2 X10^3/uL (4.5-11.0)
[2023-01-10] MEDS: KETOROLAC 30 MG/ML VIAL 15 MG IV (01:49)
[2023-01-10] MEDS: DEXAMETHASONE 10 MG/ML VIAL IV (01:49)
[2023-01-10 01:56] LABS: Alanine Aminotransferase 31 IU/L (<50); Albumin 4.8 g/dL (3.5-5.0); Albumin Globulin Ratio 1.4 (1.0-2.8); Alkaline Phosphatase 66 U/L (38-126); Aspartate Aminotransferase 31 IU/L (17-59); Bilirubin Total 0.5 mg/dL (0.2-1.3); Blood Urea Nitrogen 20 mg/dL (9-20); Calcium 9.1 mg/dL (8.4-10.2); Carbon Dioxide 27 mmol/L (22-32); Chloride 99 mmol/L (98-107); Estimated Glomerular Filt Rate > 60 mL/min (>60); Globulin 3.5 g/dL (1.7-4.1); Glucose 136 mg/dL (80-110); HEMOLYSIS 16 (0-50); Potassium 3.6 mmol/L (3.4-5.1); Sodium 140 mmol/L (137-145); Total Protein 8.3 g/dL (6.3-8.2)
[2023-01-10 03:02] VITALS: BP 123/72; PULSE 69; RESP 18; O2SAT 97
== END 2023-01-10 03:30 | disposition home or self-care (01) ==
PROVIDERS: Emergency Provider Emergency Medicine; PCP Family Medicine
DX: K11.21 Acute sialoadenitis (principal)
CPT/HCPCS: 36415; 70491; 80053; 85025; 96374; 96375; 99284; J1100; J1885; Q9967

== ENCOUNTER → 2023-04-08 11:28 | Outpatient (CLI) | payer MEDICARE, SELFPAY ==
--- NOTE | 2023-04-08 11:30 | DI.RAD.S_ITS ---
PROCEDURE: XR FINGER LT MIN 2V INDICATIONS: finger deformity TECHNIQUE: AP hand, 2 views of the 3rd finger(s) acquired. COMPARISON: None. FINDINGS: Bones: No fractures or dislocations. No suspicious bony lesions. There is [id number]-gh-[id number] 1st carpometacarpal joint degeneration. Osteopenia. Soft tissues: No suspicious soft tissue calcifications. IMPRESSION: 1. No acute osseous abnormality. 2. Utawmzik-ce-ultcdv degenerative joint disease. 3. Osteopenia. Dictated by: Roderick Trinidad M.D. on 04/08/2023 at 13:47 Approved by: Roderick Trinidad M.D. on 04/08/2023 at 13:49
== END ==
PROVIDERS: PCP Family Medicine; Referring Provider Family Medicine; Visit Provider Family Medicine
DX: M19.042 Primary osteoarthritis, left hand (principal); M85.842 Other specified disorders of bone density and structure, left hand; M20.002 Unspecified deformity of left finger(s)
CPT/HCPCS: 73140

== ENCOUNTER → 2023-04-17 07:55 | Outpatient (CLI) | payer MEDICARE, SELFPAY ==
--- NOTE | 2023-04-17 07:56 | DI.US.S_ITS ---
PROCEDURE: US ABD AORTA ANEURYSM SCREEN INDICATIONS: screening TECHNIQUE: Real time scanning was performed of the aorta and iliac arteries, with image documentation. COMPARISON: [facility], , US ABD AORTA ANEURYSM SCREEN, 07/03/2021, 8:10. FINDINGS: Aorta: Proximal aortic diameter measures 1.4 cm. Mid-aorta measures 1.9 cm. Distal aortic diameter is three cm. Iliac arteries: Right common iliac artery measures 0.8 cm. Left common iliac artery measures 0 point cm. IMPRESSION: No sonographic evidence of abdominal aortic or iliac artery aneurysm. Dictated by: Rachelle Fernandez M.D. on 04/17/2023 at 9:58 Approved by: Rachelle Fernandez M.D. on 04/17/2023 at 9:59
--- NOTE | 2023-04-17 07:56 | DI.ECHO.S_ITS ---
[facility]---------+ [facility] +---------+ : : [address] : : : : [id number] : : : : Phone: [phone] Echocardiogram Report + + :Name: KAIDEN VIVEROS Study Date: 04/17/2023 Height: 64 in : :[facility] ReadingLocation: Weight: 210 lb : : Gender: Male BSA: 2.0 m2 : :: 1955 Age: 67 yrs BP: 146/90 mmHg: :Reason For Study: Essential Hypertension : :Ordering Physician: CRISTOPHER BERNARDO Performed By: Su Lind : :Referring: CRISTOPHER BERNARDO : + + Interpretation Summary The left ventricle is normal in size. There is mild concentric left ventricular hypertrophy. The ejection fraction is estimated to be 60-65%. The right ventricle is normal size. The right ventricular systolic function is normal. There is moderate mitral annular calcification. Some restriction of posterior mitral leaflet movement without any significant mitral stenosis. The aortic valve is moderately calcified. The peak aortic velocity is 3.37 m/sec. The aortic valve mean gradient is 26 mmHg. The calculated aortic valve area is 1.2 cm2. There is moderate aortic stenosis. The ascending aorta is mild-moderately enlarged. The IVC is of normal diameter and collapses greater than 50% with a sniff. This suggests a low right atrial pressure of 3 mm Hg. Procedure: A two-dimensional transthoracic echocardiogram with color flow and Doppler was performed. The study quality was technically adequate. There is no prior echocardiogram noted for this patient. The patient was in normal sinus rhythm during the exam. Left Ventricle: The left ventricle is normal in size. There is mild concentric left ventricular hypertrophy. There is no thrombus. The ejection fraction is estimated to be 60-65%. The left ventricular ejection fraction is normal. There are no focal wall motion abnormalities. MV E/A: 0.86 Med Peak E' Armen: 5.8 cm/sec E/E' med: 20.9. Right Ventricle: The right ventricle is normal size. The right ventricular systolic function is normal. Atria: The left atrial size is normal. Right atrial size is normal. There is no Doppler evidence for an interatrial shunt. Mitral Valve: There is moderate mitral annular calcification. The mitral valve leaflets are mildly calcified. The mitral valve chordae are thickened and/or calcified. Some restriction of posterior mitral leaflet movement without any significant mitral stenosis. No significant mitral valve stenosis. There is trace mitral regurgitation. Aortic Valve: The aortic valve is moderately calcified. The aortic valve is trileaflet. There is moderate aortic stenosis. The peak aortic velocity is 3.37 m/sec. The aortic valve mean gradient is 26 mmHg. The calculated aortic valve area is 1.2 cm2. No aortic regurgitation is present. Tricuspid Valve: The tricuspid valve is normal. There is no tricuspid stenosis. There is trace tricuspid regurgitation. The right ventricular systolic pressure is estimated to be at least 23 mmHg based on an estimated right atrial pressure of 3 mm Hg. Pulmonic Valve: The pulmonic valve is not well seen, but is grossly normal. There is no pulmonic valvular stenosis. There is no pulmonic valvular regurgitation. Great Vessels: The aortic root is normal size. The ascending aorta is mild- moderately enlarged. The pulmonary artery is normal size. The IVC is of normal diameter and collapses greater than 50% with a sniff. This suggests a low right atrial pressure of 3 mm Hg. Pericardium/ Pleura There is no pericardial effusion. There is an anterior echo-free space consistent with a fat pad. There is no pleural effusion. MMode/2D Measurements & Calculations LVIDd: 4.4 cm LVOT diam: 2.1 cm LVIDs: 3.2 cm Ao root diam: 3.5 cm FS: 27.3 % asc Aorta Diam: 4.2 cm IVSd: 1.2 cm LVPWd: 1.3 cm LV zuleta. diameter/BSA (cm/m^2): 2.2 LV sys. diameter/BSA (cm/m^2): 1.6 LA A2 area: 16.0 cm2 RA long axis: 4.9 cm LA A4 area: 18.7 cm2 RA area: 13.6 cm2 LA length (vol): 5.0 cm RA vol: 32.0 ml LA vol: 50.4 ml RA : 16.0 ml/m2 LA vol index: 25.2 ml/m2 RVD1 (basal): 3.4 cm LVLs ap4: 6.0 cm LVLd ap2: 7.2 cm TAPSE_phl: 2.2 cm LVLs ap2: 5.4 cm Doppler Measurements & Calculations Ao V2 max: 330.0 cm/sec LVOT Max Armen: 110.0 cm/sec Ao V2 mean: 239.4 cm/sec LV V1 max P.8 mmHg Ao max P.0 mmHg LV V1 VTI: 27.8 cm Ao mean P.8 mmHg JOE(I,D): 1.2 cm2 Ao V2 VTI: 82.7 cm JOE(V,D): 1.2 cm2 sev ratio: 0.34 JOE indexed to BSA (cm^2/m^2): 0.58 MV E max armen: 121.0 cm/sec TR max armen: 226.0 cm/sec MV A max armen: 141.0 cm/sec TR max P.4 mmHg MV E/A: 0.86 PA V2 max: 122.0 cm/sec Med Peak E' Armen: 5.8 cm/sec PA V2 mean: 90.9 cm/sec E/E' med: 20.9 PA mean P.0 mmHg Lat Peak E' Armen: 7.6 cm/sec PA pr(Accel): 50.6 mmHg E/E' lat: 15.8 E/e' average: 18.3 MV dec time: 0.26 sec SV(LVOT): 96.1 ml AV VR_phl: 0.33 JOE(VTI)/BSA_phl: 0.58 MV P1/2t-pr_phl: 76.0 msec Reading Physician:09:16 AM
== END ==
PROVIDERS: PCP Family Medicine; Referring Provider Family Medicine; Visit Provider Family Medicine
DX: Z13.6 Encounter for screening for cardiovascular disorders (principal); I34.81 Nonrheumatic mitral (valve) annulus calcification; I35.0 Nonrheumatic aortic (valve) stenosis; I77.89 Other specified disorders of arteries and arterioles; Z12.11 Encounter for screening for malignant neoplasm of colon; I10 Essential (primary) hypertension; R01.1 Cardiac murmur, unspecified; R53.83 Other fatigue
CPT/HCPCS: 76706; 93306

== ENCOUNTER → 2023-09-17 13:32 | Outpatient (CLI) | payer MEDICARE, SELFPAY ==
[2023-09-17 18:43] LABS: Alanine Aminotransferase 30 IU/L (<50); Albumin 4.5 g/dL (3.5-5.0); Albumin Globulin Ratio 1.5 (1.0-2.8); Alkaline Phosphatase 88 U/L (38-126); Aspartate Aminotransferase 36 IU/L (17-59); BUN Creatinine Ratio 23.2 (6-22); Bilirubin Total 0.7 mg/dL (0.2-1.3); Blood Urea Nitrogen 19 mg/dL (9-20); Calcium 9.9 mg/dL (8.4-10.2); Carbon Dioxide 24 mmol/L (22-32); Chloride 101 mmol/L (98-107); Estimated Glomerular Filt Rate > 60 mL/min (>60); Globulin 3.1 g/dL (1.7-4.1); Glucose 110 mg/dL (80-110); HEMOLYSIS < 15 (0-50); Sodium 138 mmol/L (137-145); Total Protein 7.6 g/dL (6.3-8.2)
[2023-09-18 19:08] LABS: Hemoglobin A1C% w Est Avg Glu 5.6 % (4.0-6.0)
== END ==
PROVIDERS: PCP Family Medicine; Referring Provider Family Medicine; Visit Provider Family Medicine
DX: R73.03 Prediabetes (principal); R73.09 Other abnormal glucose
CPT/HCPCS: 36415; 80053; 83036

== ENCOUNTER → 2023-09-18 11:18 | Outpatient (CLI) | payer MEDICARE, SELFPAY ==
[2023-09-21 13:25] LABS: Fecal Immunochemical Test Negative (Negative)
== END ==
PROVIDERS: PCP Family Medicine; Referring Provider Family Medicine; Visit Provider Family Medicine
DX: Z13.6 Encounter for screening for cardiovascular disorders (principal); Z12.11 Encounter for screening for malignant neoplasm of colon
CPT/HCPCS: 82274

== ENCOUNTER 2023-12-04 17:08 | Emergency (ER) | payer MEDICARE, SELFPAY ==
[2023-12-04 17:10] VITALS: BP 113/69; PULSE 110; RESP 24; TEMP 37.1; O2SAT 97; BMI 35.9
--- NOTE | 2023-12-04 17:17 | DI.RAD.S_ITS ---
PROCEDURE: XR CHEST 1V INDICATIONS: Shortness of breath TECHNIQUE: One view of the chest was acquired. COMPARISON: None. FINDINGS: Surgical changes and devices: Cervical thoracic fusion hardware partially evaluated. Lungs and pleura: Low lung volumes. No dense consolidation or pleural effusion. Possible mild left lower lung opacity. Mediastinum: Normal heart size. Prominent aortic contours, not well evaluated on radiography Bones and chest wall: Degenerative changes. IMPRESSION: Low lung volumes. Possible mild left lower lung opacity may represent a small focus of airspace disease versus atelectasis. Consider future imaging surveillance to assess for resolution. Dictated by: Neftaly Gomez M.D. on 12/04/2023 at 18:56 Approved by: Neftaly Gomez M.D. on 12/04/2023 at 18:56
[2023-12-04 17:21] VITALS: PULSE 106; O2SAT 95
[2023-12-04 17:22] VITALS: BP 142/91; PULSE 98; O2SAT 95
[2023-12-04 17:30] VITALS: BP 144/95; PULSE 96; RESP 16; O2SAT 95
[2023-12-04 17:41] LABS: Add Manual Diff / Slide Review NO; Basophils Absolute Auto 0 /uL (0-100); Basophils Percent Auto 0.2 % (0-2); Eosinophils Absolute Auto 200 /uL (0-450); Eosinophils Percent Auto 1.5 % (2-4); Hematocrit 33.8 % (41-53); Hemoglobin 11.2 g/dL (13.5-17.5); Lymphocytes Absolute Auto 2100 /uL (1100-4500); Lymphocytes Percent Auto 14.7 % (25-40); Mean Corpuscular HGB Conc 33.2 % (30-36); Mean Corpuscular Hemoglobin 26.3 PG (26-34); Mean Corpuscular Volume 79.3 fL (80-100); Monocytes Absolute Auto 1000 /uL (0-900); Monocytes Percent Auto 7.2 % (3-14); Neutrophils Absolute Auto 11000 /uL (1500-7000); Neutrophils Percent Auto 76.4 % (50-75); Platelet Count 316 X10^3/uL (150-400); Red Blood Cell Count 4.27 X10^6/uL (4.5-5.9); Red Cell Distribution Width 15.6 % (11.6-14.8); White Blood Cell Count 14.5 X10^3/uL (4.5-11.0)
[2023-12-04 17:48] LABS: INR 1.2 (0.9-1.3); Prothrombin Time 13.3 SECONDS (9.4-12.5)
[2023-12-04 17:57] LABS: Alanine Aminotransferase 30 IU/L (<50); Albumin 4.1 g/dL (3.5-5.0); Albumin Globulin Ratio 1.3 (1.0-2.8); Alkaline Phosphatase 78 U/L (38-126); Aspartate Aminotransferase 40 IU/L (17-59); BUN Creatinine Ratio 23.7 (6-22); Bilirubin Total 0.6 mg/dL (0.2-1.3); Blood Urea Nitrogen 18 mg/dL (9-20); Carbon Dioxide 28 mmol/L (22-32); Chloride 104 mmol/L (98-107); Estimated Glomerular Filt Rate > 60 mL/min (>60); Globulin 3.2 g/dL (1.7-4.1); Glucose 130 mg/dL (80-110); HEMOLYSIS < 15 (0-50); Lactate (Lactic Acid) 1.3 mmol/L (0.7-2.1); Potassium 3.6 mmol/L (3.4-5.1); Sodium 138 mmol/L (137-145); Total Protein 7.3 g/dL (6.3-8.2)
[2023-12-04 18:00] VITALS: BP 143/77; PULSE 87; RESP 13; O2SAT 95
[2023-12-04 18:08] LABS: NT-proBNP (BNP-Adult 18+) 121 pg/mL (<125); Troponin I < 0.012 ng/mL (0.01-0.034)
--- NOTE | 2023-12-04 18:27 | ED.SOB ---
HPI - SOB/Dyspnea General Chief Complaint: Shortness of Breath/Dyspnea Stated Complaint: states thinks walking pnemonia Time Seen by Provider: 12/04/23 18:27 Source: patient Mode of arrival: Ambulatory Limitations: no limitations History of Present Illness HPI Narrative: 68-year-old male with history of hypertension, dyslipidemia, BPH, GERD, spinal surgery with complaint of ?walking pneumonia?. Patient states he has had nasal congestion and chest congestion for the past week has not been improving. Patient states no fevers. He has had pain when he coughs but not in between he has felt short of breath. He has had clear productive sputum. No swelling of his extremities. No nausea or vomiting no other GI or urinary symptoms. Patient states he did have multiple contacts about a week ago with several grandchildren and family members visiting. Home medications include omeprazole, amlodipine, rosuvastatin, Prozac, tamsulosin, chlorthalidone. Patient states he has had multiple sinus surgeries of his upper and lower back. No prior cardiac surgeries were stents. No known drug allergies. Quit smoking in 1991, occasionally uses marijuana but no other recreational drugs quit drinking 2 years ago. Patient's primary care is Dr. Seals Related Data Home Medications Medication Instructions Recorded Confirmed cholecalciferol (vitamin D3) 50 50 mcg PO DAILY 01/30/22 09/18/23 mcg (2,000 unit) capsule coenzyme Q10 100 mg capsule 200 mg PO DAILY 01/30/22 09/18/23 (CoQ-10) vitamin B complex no.10-FA 1 tab PO DAILY 01/30/22 09/18/23 magnesium glycinate 100 mg tablet 665 mg PO TID 02/12/22 09/18/23 Previous Rx's Medication Instructions Recorded acetaminophen 325 mg capsule 650 mg (2 x 325 mg) PO QID PRN 02/19/22 (Tylenol) pain #60 caps Disabled parking permit #1 ea 12/15/22 amlodipine 10 mg tablet 10 mg PO DAILY #90 tabs 03/18/23 rosuvastatin 10 mg tablet 10 mg PO DAILY #90 tabs 03/18/23 omeprazole 20 mg capsule,delayed 20 mg PO QDAY #90 caps 06/24/23 release chlorthalidone 25 mg tablet 25 mg PO DAILY blood pressure #90 09/14/23 tabs tamsulosin 0.4 mg capsule (Flomax) 0.4 mg PO BEDTIME #90 caps 09/14/23 escitalopram oxalate 10 mg tablet 10 mg PO DAILY #90 tabs 10/28/23 amoxicillin 875 mg-potassium 1 tab PO BID #20 tabs 12/04/23 clavulanate 125 mg tablet Allergies Allergy/AdvReac Type Severity Reaction Status Date / Time No Known Drug Allergies Allergy Verified 09/18/23 10:25 Review of Systems Review of Systems ROS Unobtainable: All systems reviewed & are unremarkable except as noted in HPI and below Patient History Medical History IFG (impaired fasting glucose) Aortic stenosis Encounter for initial annual wellness visit (AWV) in Medicare patient Gait instability Rupture of popliteal cyst Kidney stones (~1993) Substance abuse ADHD Lumbar back pain (~2014) Gout Cataracts, bilateral (~2009) Hemorrhoid Alcohol use Hyperlipidemia Benign essential HTN BPH (benign prostatic hyperplasia) LINDA (obstructive sleep apnea) (~2005) Bowel obstruction GERD (gastroesophageal reflux disease) Neuropathy Heart murmur Arthritis Anxiety Depression History of arthritis Surgical History Anesthesia History of hernia repair (~2021) History of lumbar surgery S/P cervical spinal fusion (2017) History of total left knee replacement (2013) Hx of removal of cyst (1994) Hx of colonoscopy (2013) History of carpal tunnel surgery of left wrist (1992) History of major orthopedic surgery History of orthopedic surgery History of spinal fusion (06/26/15) S/P total knee arthroplasty Family History Brother Age: 76 Heart disease Cancer Father Diabetes mellitus Stroke Prostate cancer Mother Cancer Mental health problem Sister Alzheimer's disease Mental health problem Grandfather Liver disease Grandmother Congestive heart failure Mental health problem Grandfather Cancer Social History marital status: household members: spouse lives independently: Yes occupational status: previously employed Smoking Status: Former smoker alcohol intake: former Smoking Status: Former smoker alcohol intake frequency: other Substance Use Type: marijuana Exam Narrative Exam Narrative: GENERAL: Alert and oriented x three, obese male in mild distress HEENT: Head normocephalic, atraumatic, EOMI, pupils reactive, no nasal congestion, face symmetric, moist mucous membranes NECK: Supple, full range of motion CARDIOVASCULAR: Regular rate and rhythm without murmurs, rubs or gallops. No JVD or edema bilaterally. RESPIRATORY: Breath sounds equal bilaterally, no wheezes rales or rhonchi. No tachypnea or accessory muscle use ABDOMEN: Soft, nontender. Normoactive bowel sounds all 4 quadrants. No guarding or rebound, rigidity, no mass : No CVA tenderness EXTREMITIES: Normal range of motion, no clubbing or edema. Neurovascularly intact NEUROLOGICAL: Cranial nerves II through XII grossly intact. Moving all extremities SKIN: Warm, dry, no petechiae, no rashes or lesions. Initial Vital Signs Initial Vital Signs: Vital Signs Temperature 98.8 F 12/04/23 17:10 Pulse Rate 110 H 12/04/23 17:10 Respiratory Rate 24 12/04/23 17:10 Blood Pressure 113/69 12/04/23 17:10 Pulse Oximetry 97 12/04/23 17:10 Oxygen Delivery Method Room Air 12/04/23 17:10 Course Orders Ordered: ED Orders 12/04/23 17:17 XR chest 1V Stat Measure peak expiratory flow ONCE RT Consult Eval and Treat NOW 12/04/23 17:32 Complete Blood Count AUTO DIFF Stat Comprehensive Metabolic Panel Stat Lactate (Lactic Acid) Stat NT-proBNP (BNP-Adult 18+) Stat Prothrombin Time INR Stat Troponin I Stat 12/04/23 17:42 EKG-12 Lead Stat Vital Signs Vital signs: Vital Signs - 8 hr 12/04/23 17:10 12/04/23 17:21 12/04/23 17:22 Temperature 98.8 F Pulse Rate 110 H 106 H 98 H Respiratory Rate 24 Blood Pressure 113/69 Pulse Oximetry 97 95 95 Oxygen Delivery Method Room Air 12/04/23 17:22 12/04/23 17:30 12/04/23 17:30 Temperature Pulse Rate 96 H Respiratory Rate 16 Blood Pressure 142/91 H 144/95 H Pulse Oximetry 95 Oxygen Delivery Method Room Air 12/04/23 18:00 12/04/23 18:00 Temperature Pulse Rate 87 Respiratory Rate 13 Blood Pressure 143/77 H Pulse Oximetry 95 Oxygen Delivery Method MDM - SOB/Dyspnea Lab Data 12/04/23 17:32 03/01/24 17:32 Labs: Lab Results 12/04/23 Range/Units 17:32 WBC 14.5 H (4.5-11.0) X10^3/uL RBC 4.27 L (4.5-5.9) X10^6/uL Hgb 11.2 L (13.5-17.5) g/dL Hct 33.8 L (41-53) % MCV 79.3 L (80-100) fL MCH 26.3 (26-34) PG MCHC 33.2 (30-36) % RDW 15.6 H (11.6-14.8) % Plt Count 316 (150-400) X10^3/uL Neut % (Auto) 76.4 H (50-75) % Lymph % (Auto) 14.7 L (25-40) % [place] % (Auto) 7.2 (3-14) % Eos % (Auto) 1.5 L (2-4) % Baso % (Auto) 0.2 (0-2) % Neut # (Auto) 79777 H (2804-6351) /uL Lymph # (Auto) 2100 (4568-7902) /uL [place] # (Auto) 1000 H (0-900) /uL Eos # (Auto) 200 (0-450) /uL Baso # (Auto) 0 (0-100) /uL PT 13.3 H (9.4-12.5) SECONDS INR 1.2 (0.9-1.3) Sodium 138 (137-145) mmol/L Potassium 3.6 (3.4-5.1) mmol/L Chloride 104 (98-107) mmol/L Carbon Dioxide 28 (22-32) mmol/L BUN 18 (9-20) mg/dL Creatinine 0.76 (0.66-1.25) mg/dL Estimated GFR > 60 (>60) mL/min BUN/Creatinine Ratio 23.7 H (6-22) Glucose 130 H (80-110) mg/dL Lactate 1.3 (0.7-2.1) mmol/L Calcium 9.0 (8.4-10.2) mg/dL Total Bilirubin 0.6 (0.2-1.3) mg/dL AST 40 (17-59) IU/L ALT 30 (<50) IU/L Alkaline Phosphatase 78 (38-126) U/L Troponin I < 0.012 (0.01-0.034) ng/mL NT-Pro-B Natriuret Pep 121 (<125) pg/mL Total Protein 7.3 (6.3-8.2) g/dL Albumin 4.1 (3.5-5.0) g/dL Globulin 3.2 (1.7-4.1) g/dL Albumin/Globulin Ratio 1.3 (1.0-2.8) ECG Data Attestation: I personally reviewed and interpreted this ECG as follows: Prior ECG tracings: not available for review Interpretation: NSR rate of 88, pr 154, qrs of 82, qtc 433. No acute ST elevation or depression. No priors MDM Narrative Medical decision making narrative: 68-year-old male with proximally week of cough chest congestion, no fevers, chest pain only with cough. Patient has white count of 14, hemoglobin is 11, white count was 14 in January. Has been lower before. Does appear to be microcytic. Otherwise normal renal function, electrolytes and negative troponin. EKG does not show any acute changes. Chest x-ray shows possible left lower lung opacity. Suspect patient does actually have pneumonia. Prescription for antibiotics. Discharge Plan Departure Patient Disposition: Home Clinical Impression: Pneumonia, Anemia Activity Restrictions/Additional Instructions: Follow-up with your physician for recheck, your blood does show some anemia with a hemoglobin of 11. This is lower than your priors, please follow-up to make sure this is not continuing to drop. Prescription for antibiotics was printed. Please return for new or worsening symptoms new chest pain, shortness of breath, lightheadedness or passing out, persistent vomiting, lightheadedness or passing out, new swelling in extremities or other new or concerning changes. Prescriptions: New amoxicillin-pot clavulanate 875-125 mg tablet 1 tab PO BID Qty: 20 0RF No Action omeprazole 20 mg capsule,delayed release(DR/EC) 20 mg PO QDAY Qty: 90 3RF tamsulosin [Flomax] 0.4 mg capsule 0.4 mg PO BEDTIME Qty: 90 3RF chlorthalidone 25 mg tablet 25 mg PO DAILY Qty: 90 3RF escitalopram oxalate 10 mg tablet 10 mg PO DAILY Qty: 90 3RF amlodipine 10 mg tablet 10 mg PO DAILY Qty: 90 3RF rosuvastatin 10 mg tablet 10 mg PO DAILY Qty: 90 3RF (DME) Disabled parking permit See Rx Instructions .ROUTE .MEDSUPPLY Qty: 1 0RF Rx Instructions: I find this patient to be medically disabled and qualified for disabled parking as indicated, and signed, on the accompanying disabled parking application for individuals. cholecalciferol (vitamin D3) 50 mcg (2,000 unit) capsule 50 mcg PO DAILY coenzyme Q10 [CoQ-10] 100 mg capsule 200 mg PO DAILY vitamin B complex no.10-FA 1 tab PO DAILY magnesium glycinate 100 mg Tablet 665 mg PO TID acetaminophen [Tylenol] 325 mg capsule 650 mg PO QID PRN (Reason: pain) Qty: 60 0RF Referrals: Arnel Hammond DO [Primary Care Provider] - Stand Alone Forms: Patient Portal/API
== END 2023-12-04 19:17 | disposition home or self-care (01) ==
PROVIDERS: Emergency Medicine; Emergency Provider Emergency Medicine; PCP Family Medicine
DX: J18.9 Pneumonia, unspecified organism (principal); D64.9 Anemia, unspecified; Z87.891 Personal history of nicotine dependence
CPT/HCPCS: 36415; 71045; 80053; 83605; 83880; 84484; 85025; 85610; 93005; 99284

== ENCOUNTER → 2023-12-25 11:48 | Outpatient (CLI) | payer MEDICARE, SELFPAY | PROVIDERS: PCP Family Medicine; Referring Provider Family Medicine; Visit Provider Family Medicine | DX: R06.09 Other forms of dyspnea (principal); Z87.891 Personal history of nicotine dependence | CPT/HCPCS: 94060; 94726; 94729 ==

== ENCOUNTER 2024-01-24 14:35 | Emergency (ER) | payer MEDICARE, SELFPAY ==
[2024-01-24 14:45] VITALS: BP 134/67; PULSE 87; RESP 16; O2SAT 94; BMI 36.0
--- NOTE | 2024-01-24 14:54 | ED.ABDPAIN ---
HPI - Abdominal Pain <Luz Maria Lam PA-C - Last Filed: 01/24/24 18:23> General Chief Complaint: Abdominal Pain Stated Complaint: left side abd pain/bulging Time Seen by Provider: 01/24/24 14:52 Source: patient Mode of arrival: Ambulatory History of Present Illness HPI narrative: 68-year-old male presents to the ER for left abdominal wall bulge. Apparently he was having some coughing fits while he was being treated for pneumonia and noticed some bluish purple discoloration pointing to his left anterior lateral abdomen. At no time did he have any pain a week into this he then noticed a bulge and thought it was a muscle tear pointing in the vertical direction continued coughing and then felt as if he tired something in the horizontal direction. He states the purple and blue discoloration if completely resolved. Again he is denying any abdominal pain whatsoever except for ?tender and soreness if he touches here, pointing to his left anterior abdomen in the midclavicular line. Walking, movement, does not cause pain, it is only if he presses on the area described. He has no disruption during sleep, he has had no nausea, vomiting, shortness of breath, back pain more so than normal. Over the last week he believes it has gotten a little smaller in size. Last bowel movement was this morning and it was normal. No constipation. His history is significant for an ER visit on December 04, 2023 diagnosed with left lower lobe pneumonia and treated with a 10 day course of Augmentin which she completed, microcytic anemia, hypertension, aortic stenosis, BPH, parotitis and GERD. He has had no abdominal surgeries. He is only taken Tylenol. He has had some low back surgery and neck surgery. 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 All other systems are reviewed and are negative. Related Data Home Medications Medication Instructions Recorded Confirmed cholecalciferol (vitamin D3) 50 50 mcg PO DAILY 01/30/22 01/15/24 mcg (2,000 unit) capsule coenzyme Q10 100 mg capsule 200 mg PO DAILY 01/30/22 01/15/24 (CoQ-10) vitamin B complex no.10-FA 1 tab PO DAILY 01/30/22 01/15/24 magnesium glycinate 100 mg tablet 665 mg PO TID 02/12/22 01/15/24 Previous Rx's Medication Instructions Recorded acetaminophen 325 mg capsule 650 mg (2 x 325 mg) PO QID PRN 02/19/22 (Tylenol) pain #60 caps Disabled parking permit #1 ea 12/15/22 rosuvastatin 10 mg tablet 10 mg PO DAILY #90 tabs 03/18/23 omeprazole 20 mg capsule,delayed 20 mg PO QDAY #90 caps 06/24/23 release chlorthalidone 25 mg tablet 25 mg PO DAILY blood pressure #90 09/14/23 tabs tamsulosin 0.4 mg capsule (Flomax) 0.4 mg PO BEDTIME #90 caps 09/14/23 escitalopram oxalate 10 mg tablet 10 mg PO DAILY #90 tabs 10/28/23 amlodipine 10 mg tablet 10 mg PO DAILY #90 tabs 01/13/24 Allergies Allergy/AdvReac Type Severity Reaction Status Date / Time No Known Drug Allergies Allergy Verified 01/15/24 11:04 Review of Systems <Luz Maria Lam PA-C - Last Filed: 01/24/24 18:23> Review of Systems Narrative: SEE HPI Patient History <Luz Maria Lam PA-C - Last Filed: 01/24/24 18:23> Medical History Marijuana use IFG (impaired fasting glucose) Aortic stenosis Encounter for initial annual wellness visit (AWV) in Medicare patient Gait instability Rupture of popliteal cyst Kidney stones (~1993) Substance abuse ADHD Lumbar back pain (~2014) Gout Cataracts, bilateral (~2009) Hemorrhoid Alcohol use Hyperlipidemia Benign essential HTN BPH (benign prostatic hyperplasia) LINDA (obstructive sleep apnea) (~2005) Bowel obstruction GERD (gastroesophageal reflux disease) Neuropathy Heart murmur Arthritis Anxiety Depression History of arthritis Surgical History Anesthesia History of hernia repair (~2021) History of lumbar surgery S/P cervical spinal fusion (2017) History of total left knee replacement (2013) Hx of removal of cyst (1994) Hx of colonoscopy (2013) History of carpal tunnel surgery of left wrist (1992) History of major orthopedic surgery History of orthopedic surgery History of spinal fusion (06/26/15) S/P total knee arthroplasty Family History Brother Age: 76 Heart disease Cancer Father Diabetes mellitus Stroke Prostate cancer Mother Cancer Mental health problem Sister Alzheimer's disease Mental health problem Grandfather Liver disease Grandmother Congestive heart failure Mental health problem Grandfather Cancer Social History marital status: unknown details: Pt. lives with his daughter and her family. household members: family lives independently: Yes occupational status: previously employed Smoking Status: Former smoker alcohol intake: former substance use type: marijuana Smoking Status: Former smoker alcohol intake frequency: other Substance Use Type: marijuana Exam <Luz Maria Lam PA-C - Last Filed: 01/24/24 18:23> Initial Vital Signs Initial Vital Signs: Vital Signs Pulse Rate 87 01/24/24 14:45 Respiratory Rate 16 01/24/24 14:45 Blood Pressure 134/67 01/24/24 14:45 Pulse Oximetry 94 01/24/24 14:45 Oxygen Delivery Method Room Air 01/24/24 14:45 Vital signs reviewed and are normal. Const Other: Ambulatory, now seated, smiling, pleasantly conversing, no distress. Chest Other: No discoloration or breaks in the skin. No focal tenderness of the chest wall or ribcage. Resp Other: Lungs are clear to auscultation throughout, deep inspiration reveals no cough or no pain. Cardio Other: Regular rate and rhythm, no tachycardia, he has a systolic murmur heard loudest in the right sternal border 3/6. No rub or gallop. GI Other: Bowel sounds are hypoactive but heard, he has obvious swelling on his left mid abdominal wall. There is no discoloration. He has focal tenderness in the left upper quadrant just inferior to the umbilicus and just lateral in the midclavicular line. It appears to be linear, there is no palpable fluctuance, muscle spasm, or appreciable defect. There is no guarding but he is slightly tender here. The mass itself travels along to the lateral aspect and it is soft nontender. Measures approximately 6-8 inches by 5-6 inches. Flexion of his abdominal wall reveals no diastasis rectus. No additional bulge felt during activation of his abdominal wall. He is able to rotate from side to side and lateral bending is intact. Back/Spine/Pelvis Other: No discoloration, no focal tenderness, postoperative scars to his anterior cervical, posterior lumbar spine Skin Other: Normal color, turgor, temperature. <Shar Navarro MD - Last Filed: 02/03/24 07:36> Initial Vital Signs Initial Vital Signs: Vital Signs Pulse Rate 87 01/24/24 14:45 Respiratory Rate 16 01/24/24 14:45 Blood Pressure 134/67 01/24/24 14:45 Pulse Oximetry 94 01/24/24 14:45 Oxygen Delivery Method Room Air 01/24/24 14:45 Course <Luz Maria Lam PA-C - Last Filed: 01/24/24 18:23> Orders Ordered: Discontinued Medications Sodium Chloride (Normal Saline 0.9%) 1,000 mls @ 1,000 mls/hr IV BOLUS PRN PRN Reason: Fluid replacement Last Infusion: 01/24/24 18:22 Dose: Infused Documented By: Admin: 01/24/24 17:51 Dose: 1,000 mls/hr Documented By: DIANA Potassium Chloride (Potassium Chloride 20 Meq/15 Ml Udc) 20 meq PO NOW ONE Stop: 01/24/24 17:43 Last Admin: 01/24/24 18:12 Dose: Not Given Documented By: YARED Potassium Chloride (Potassium Chloride 20 Meq Tab) 20 meq PO NOW ONE Stop: 01/24/24 17:46 Last Admin: 01/24/24 18:00 Dose: 20 meq Documented By: YARED Reevaluation(s) Reevaluation #1: Re-evaluated following his potassium repletion PO, saline administration, he feels well no new pain he is ready to go home and have dinner. Consultations Consultation #1: I ran this patient's presentation by the attending Dr. Magana who recommended CT scan abdomen pelvis with contrast as well as a CBC and CMP and 500 mL of normal saline prior to the scan. Looking for a abdominal wall hematoma, versus Spigelian hernia, versus other. Vital Signs Vital signs: Vital Signs - 8 hr 01/24/24 14:45 Pulse Rate 87 Respiratory Rate 16 Blood Pressure 134/67 Pulse Oximetry 94 Oxygen Delivery Method Room Air <Shar Navarro MD - Last Filed: 02/03/24 07:36> Orders Ordered: Discontinued Medications Sodium Chloride (Normal Saline 0.9%) 1,000 mls @ 1,000 mls/hr IV BOLUS PRN PRN Reason: Fluid replacement Last Infusion: 01/24/24 18:22 Dose: Infused Documented By: Admin: 01/24/24 17:51 Dose: 1,000 mls/hr Documented By: DIANA Potassium Chloride (Potassium Chloride 20 Meq/15 Ml Udc) 20 meq PO NOW ONE Stop: 01/24/24 17:43 Last Admin: 01/24/24 18:12 Dose: Not Given Documented By: YARED Potassium Chloride (Potassium Chloride 20 Meq Tab) 20 meq PO NOW ONE Stop: 01/24/24 17:46 Last Admin: 01/24/24 18:00 Dose: 20 meq Documented By: YARED Vital Signs Vital signs: Vital Signs - 8 hr 01/24/24 14:45 Pulse Rate 87 Respiratory Rate 16 Blood Pressure 134/67 Pulse Oximetry 94 Oxygen Delivery Method Room Air MDM - Abdominal Pain <Luz Maria Lam PA-C - Last Filed: 01/24/24 18:23> Lab Data Lab results narrative: CBC, BMP CBC is within normal range compared to his prior readings, normal white count. Creatinine of 1.13 GFR greater than 60 only abnormality with slightly low potassium at 3.3. 01/24/24 16:43 01/24/24 16:43 Labs: Lab Results 01/24/24 Range/Units 16:43 WBC 11.0 (4.5-11.0) X10^3/uL RBC 4.48 L (4.5-5.9) X10^6/uL Hgb 11.8 L (13.5-17.5) g/dL Hct 35.6 L (41-53) % MCV 79.6 L (80-100) fL MCH 26.4 (26-34) PG MCHC 33.1 (30-36) % RDW 16.8 H (11.6-14.8) % Plt Count 378 (150-400) X10^3/uL Neut % (Auto) 76.6 H (50-75) % Lymph % (Auto) 13.6 L (25-40) % Coryell % (Auto) 7.6 (3-14) % Eos % (Auto) 1.9 L (2-4) % Baso % (Auto) 0.3 (0-2) % Neut # (Auto) 8400 H (1216-7676) /uL Lymph # (Auto) 1500 (8136-6044) /uL Coryell # (Auto) 800 (0-900) /uL Eos # (Auto) 200 (0-450) /uL Baso # (Auto) 0 (0-100) /uL Sodium 136 L (137-145) mmol/L Potassium 3.3 L (3.4-5.1) mmol/L Chloride 102 (98-107) mmol/L Carbon Dioxide 29 (22-32) mmol/L BUN 19 (9-20) mg/dL Creatinine 1.13 (0.66-1.25) mg/dL Estimated GFR > 60 (>60) mL/min BUN/Creatinine Ratio 16.8 (6-22) Glucose 122 H (80-110) mg/dL Calcium 9.4 (8.4-10.2) mg/dL Imaging Data Chest x-ray: My Impression: No acute abnormalities. Radiologist's Impression: PROCEDURE: XR CHEST 2V INDICATIONS: left abdominal bulge following coughing x 1 week ago TECHNIQUE: 2 views of the chest were acquired. COMPARISON: [facility], , XR CHEST 1V, 12/04/2023, 17:46. FINDINGS: Surgical changes and devices: Anterior posterior fixation of cervical/thoracic spine. Lungs and pleura: Lungs are clear. No pleural effusions or pneumothorax. Mediastinum: Mediastinal contours are normal. Heart size is normal. Bones and chest wall: No suspicious bony abnormalities. Soft tissues appear unremarkable. IMPRESSION: No acute cardiopulmonary abnormality is seen. Dictated by: Shar Payne M.D. on 01/24/2024 at 14:58 Approved by: Shar Payne M.D. on 01/24/2024 at 14:59 Abdominal x-ray: My Impression: Deferred to radiologist's interpretation. Radiologist's Impression: PROCEDURE: XR ABDOMEN MIN 2V INDICATIONS: abdominal wall bulge s/p coughing TECHNIQUE: 2 views of the abdomen were acquired. COMPARISON: None. FINDINGS: Surgical changes and devices: None. Bowel: No pneumoperitoneum. The bowel gas pattern is normal. Soft tissues: No masses; visualized solid organ contours appear normal in size. No suspicious abdominal calcifications. Bones: No suspicious bony abnormalities. IMPRESSION: Non-obstructive bowel gas pattern. Dictated by: Shar Payne M.D. on 01/24/2024 at 14:59 Approved by: Shar Payne M.D. on 01/24/2024 at 15:00 CT scan - abdomen/pelvis: My Impression: Deferred to radiologist's interpretation. Radiologist's Impression: PROCEDURE: CT ABDOMEN PELVIS W CON INDICATIONS: LUQ abdominal swelling. R/O hernia versus hematoma TECHNIQUE: After the administration of intravenous contrast, axial sections acquired from the lung bases to the pubic symphysis. Coronal and sagittal reformats were performed. For radiation dose reduction, the following was used: automated exposure control, adjustment of mA and/or kV according to patient size. COMPARISON: None. FINDINGS: Image quality: Diagnostic. Lower Chest: No significant findings. ABDOMEN: Liver: No solid mass. Gallbladder: No radiopaque gallstones or wall thickening. Biliary ducts: No biliary dilation. Pancreas: No ductal dilation. Spleen: Size is within normal limits. Adrenal Glands: No adrenal nodules. Kidneys and Ureters: Coral defect of the right kidney suggest prior infarct in or ablation. No hydronephrosis. No solid mass. No complex renal cystic lesion which requires follow up. Punctate nonobstructive left renal stone. Stomach and Bowel: Diffuse wall thickening of the stomach. Normal colonic caliber, without significant wall thickening. A few scattered colonic diverticula. Peritoneum: No abnormal intraperitoneal fluid. No free air. Ventral Wall: No significant ventral hernia. Abdominal Nodes: No retroperitoneal or mesenteric adenopathy by size criteria. Vessels: Aorta and inferior vena cava are normal in size. PELVIS: Pelvic Organs: Unremarkable. Bladder: No bladder wall thickening, accounting for underdistention. Pelvic Nodes: No enlarged lymph nodes. Miscellaneous: Small left fat containing inguinal hernia. Bones: No aggressive osseous abnormality. [id number] spondylitic changes throughout the visualized thoracolumbar spine. IMPRESSION: Small left fat containing inguinal hernia. Punctate nonobstructive left renal stone. MDM Narrative Medical decision making narrative: Two-view chest x-ray and abdominal series were performed both for normal. It appears he has resolved his left lower lobe pneumonia from December 04 2023. Normal bowel gas pattern. Clinical exam is consistent with a possible rectus abdominis tear either involving the rectus sheath or tenderness in her section or aponeurosis. He has good movement as far as his range of motion he just has a large bulge on his left upper abdominal quadrant. No pain no clinical findings to suggest a hernia. This has been going on for over a week now. He states that it has gotten a little smaller. He has no changes in the knee his bowel habits. CBC was within his normal range no interval change except for a now normal white count compared to his December reading. Chemistry reveals normal kidney function slightly low potassium at 3.3 he is repleted with 20 mEq of oral potassium in house. IV hydration 500 mL of normal saline, CT scan abdomen pelvis with contrast reveals fat containing left inguinal hernia, and a punctate left renal stone nonobstructing. Neither of these are in the area of his abdominal discomfort. Discussed the case once again with Dr. Navarro and patient is ready for discharge. I have asked him to follow up with his primary care provider also we did replete his potassium and gave him some normal saline as he had contrast today. Recommend that he has a repeat creatinine and GFR performed with his doctor. Red flag warning signs are reviewed in detail. Discussed using a pillow splint if he has any coughing or hiccupping. Avoid straining or using the abdominal wall such as sit-ups or lifting anything greater than 10-15 lb. Please return to the emergency department if you have any pain, new symptoms, generally feel unwell or any other concerns. <Shar Navarro MD - Last Filed: 02/03/24 07:36> Lab Data Labs: Lab Results 01/24/24 Range/Units 16:43 WBC 11.0 (4.5-11.0) X10^3/uL RBC 4.48 L (4.5-5.9) X10^6/uL Hgb 11.8 L (13.5-17.5) g/dL Hct 35.6 L (41-53) % MCV 79.6 L (80-100) fL MCH 26.4 (26-34) PG MCHC 33.1 (30-36) % RDW 16.8 H (11.6-14.8) % Plt Count 378 (150-400) X10^3/uL Neut % (Auto) 76.6 H (50-75) % Lymph % (Auto) 13.6 L (25-40) % Coryell % (Auto) 7.6 (3-14) % Eos % (Auto) 1.9 L (2-4) % Baso % (Auto) 0.3 (0-2) % Neut # (Auto) 8400 H (0703-0437) /uL Lymph # (Auto) 1500 (4223-2429) /uL Coryell # (Auto) 800 (0-900) /uL Eos # (Auto) 200 (0-450) /uL Baso # (Auto) 0 (0-100) /uL Sodium 136 L (137-145) mmol/L Potassium 3.3 L (3.4-5.1) mmol/L Chloride 102 (98-107) mmol/L Carbon Dioxide 29 (22-32) mmol/L BUN 19 (9-20) mg/dL Creatinine 1.13 (0.66-1.25) mg/dL Estimated GFR > 60 (>60) mL/min BUN/Creatinine Ratio 16.8 (6-22) Glucose 122 H (80-110) mg/dL Calcium 9.4 (8.4-10.2) mg/dL Discharge Plan Departure Patient Disposition: Home Clinical Impression: Left inguinal hernia, Hypokalemia Strain of abdominal wall Qualifiers: Encounter type: initial encounter Qualified Code(s): S39.011A - Strain of muscle, fascia and tendon of abdomen, initial encounter Instructions: DI for Abdominal Muscle Strain Activity Restrictions/Additional Instructions: Your CT scan of the abdomen and pelvis had an incidental finding of a small left inguinal hernia containing fat, this is not wear your symptoms were I believe you have an abdominal wall strain. Your lab work also was within normal limits. It did show slightly low potassium at 3.3 and you were given a potassium tablet to replete this. Please contact your doctor tomorrow to let them know you were in the ER. You were also given contrast during the CT scan and therefore received some intravenous normal saline. Please let your doctor know about this as well. If anything worsens or you have any new symptoms please return to the emergency department. Try to avoid any heavy lifting, sit-ups, when you get up from the couch or a seated position try not to use her abdominal wall or place a hand over the area where your discomfort is when you do strain. You can also use a pillow splint if you have any coughing or hiccupping. It was nice to meet you and have a chat I wish you the best of luck. Prescriptions: No Action omeprazole 20 mg capsule,delayed release(DR/EC) 20 mg PO QDAY Qty: 90 3RF tamsulosin [Flomax] 0.4 mg capsule 0.4 mg PO BEDTIME Qty: 90 3RF chlorthalidone 25 mg tablet 25 mg PO DAILY Qty: 90 3RF escitalopram oxalate 10 mg tablet 10 mg PO DAILY Qty: 90 3RF amlodipine 10 mg tablet 10 mg PO DAILY Qty: 90 3RF rosuvastatin 10 mg tablet 10 mg PO DAILY Qty: 90 3RF (DME) Disabled parking permit See Rx Instructions .ROUTE .MEDSUPPLY Qty: 1 0RF Rx Instructions: I find this patient to be medically disabled and qualified for disabled parking as indicated, and signed, on the accompanying disabled parking application for individuals. cholecalciferol (vitamin D3) 50 mcg (2,000 unit) capsule 50 mcg PO DAILY coenzyme Q10 [CoQ-10] 100 mg capsule 200 mg PO DAILY vitamin B complex no.10-FA 1 tab PO DAILY magnesium glycinate 100 mg Tablet 665 mg PO TID acetaminophen [Tylenol] 325 mg capsule 650 mg PO QID PRN (Reason: pain) Qty: 60 0RF Referrals: Arnel Hammond DO [Primary Care Provider] - Stand Alone Forms: Patient Portal/API ED Sign-out <Shar Navarro MD - Last Filed: 02/03/24 07:36> Cosign ED Attending Cosjuan antonioature Attestation: I was immediately available in the department for consultation. ?This documentation has been reviewed and I agree with assessment and plan. Supervised by Shar Navarro MD
--- NOTE | 2024-01-24 15:05 | DI.RAD.S_ITS ---
PROCEDURE: XR ABDOMEN MIN 2V INDICATIONS: abdominal wall bulge s/p coughing TECHNIQUE: 2 views of the abdomen were acquired. COMPARISON: None. FINDINGS: Surgical changes and devices: None. Bowel: No pneumoperitoneum. The bowel gas pattern is normal. Soft tissues: No masses; visualized solid organ contours appear normal in size. No suspicious abdominal calcifications. Bones: No suspicious bony abnormalities. IMPRESSION: Non-obstructive bowel gas pattern. Dictated by: Shar Payne M.D. on 01/24/2024 at 14:59 Approved by: Shar Payne M.D. on 01/24/2024 at 15:00
--- NOTE | 2024-01-24 15:09 | DI.RAD.S_ITS ---
PROCEDURE: XR CHEST 2V INDICATIONS: left abdominal bulge following coughing x 1 week ago TECHNIQUE: 2 views of the chest were acquired. COMPARISON: [facility], CR, XR CHEST 1V, 12/04/2023, 17:46. FINDINGS: Surgical changes and devices: Anterior posterior fixation of cervical/thoracic spine. Lungs and pleura: Lungs are clear. No pleural effusions or pneumothorax. Mediastinum: Mediastinal contours are normal. Heart size is normal. Bones and chest wall: No suspicious bony abnormalities. Soft tissues appear unremarkable. IMPRESSION: No acute cardiopulmonary abnormality is seen. Dictated by: Shar Payne M.D. on 01/24/2024 at 14:58 Approved by: Shar Payne M.D. on 01/24/2024 at 14:59
--- NOTE | 2024-01-24 16:25 | DI.CT.S_ITS ---
PROCEDURE: CT ABDOMEN PELVIS W CON INDICATIONS: LUQ abdominal swelling. R/O hernia versus hematoma TECHNIQUE: After the administration of intravenous contrast, axial sections acquired from the lung bases to the pubic symphysis. Coronal and sagittal reformats were performed. For radiation dose reduction, the following was used: automated exposure control, adjustment of mA and/or kV according to patient size. COMPARISON: None. FINDINGS: Image quality: Diagnostic. Lower Chest: No significant findings. ABDOMEN: Liver: No solid mass. Gallbladder: No radiopaque gallstones or wall thickening. Biliary ducts: No biliary dilation. Pancreas: No ductal dilation. Spleen: Size is within normal limits. Adrenal Glands: No adrenal nodules. Kidneys and Ureters: Coral defect of the right kidney suggest prior infarct in or ablation. No hydronephrosis. No solid mass. No complex renal cystic lesion which requires follow up. Punctate nonobstructive left renal stone. Stomach and Bowel: Diffuse wall thickening of the stomach. Normal colonic caliber, without significant wall thickening. A few scattered colonic diverticula. Peritoneum: No abnormal intraperitoneal fluid. No free air. Ventral Wall: No significant ventral hernia. Abdominal Nodes: No retroperitoneal or mesenteric adenopathy by size criteria. Vessels: Aorta and inferior vena cava are normal in size. PELVIS: Pelvic Organs: Unremarkable. Bladder: No bladder wall thickening, accounting for underdistention. Pelvic Nodes: No enlarged lymph nodes. Miscellaneous: Small left fat containing inguinal hernia. Bones: No aggressive osseous abnormality. [id number] spondylitic changes throughout the visualized thoracolumbar spine. IMPRESSION: Small left fat containing inguinal hernia. Punctate nonobstructive left renal stone. Dictated by: Shar Payne M.D. on 01/24/2024 at 16:56 Approved by: Shar Payne M.D. on 01/24/2024 at 17:05
[2024-01-24 16:58] LABS: Add Manual Diff / Slide Review NO; Basophils Absolute Auto 0 /uL (0-100); Basophils Percent Auto 0.3 % (0-2); Eosinophils Absolute Auto 200 /uL (0-450); Eosinophils Percent Auto 1.9 % (2-4); Hematocrit 35.6 % (41-53); Hemoglobin 11.8 g/dL (13.5-17.5); Lymphocytes Absolute Auto 1500 /uL (1100-4500); Lymphocytes Percent Auto 13.6 % (25-40); Mean Corpuscular HGB Conc 33.1 % (30-36); Mean Corpuscular Hemoglobin 26.4 PG (26-34); Mean Corpuscular Volume 79.6 fL (80-100); Monocytes Absolute Auto 800 /uL (0-900); Monocytes Percent Auto 7.6 % (3-14); Neutrophils Absolute Auto 8400 /uL (1500-7000); Neutrophils Percent Auto 76.6 % (50-75); Platelet Count 378 X10^3/uL (150-400); Red Blood Cell Count 4.48 X10^6/uL (4.5-5.9); Red Cell Distribution Width 16.8 % (11.6-14.8)
[2024-01-24 17:05] LABS: BUN Creatinine Ratio 16.8 (6-22); Blood Urea Nitrogen 19 mg/dL (9-20); Calcium 9.4 mg/dL (8.4-10.2); Carbon Dioxide 29 mmol/L (22-32); Chloride 102 mmol/L (98-107); Estimated Glomerular Filt Rate > 60 mL/min (>60); Glucose 122 mg/dL (80-110); HEMOLYSIS < 15 (0-50); Potassium 3.3 mmol/L (3.4-5.1); Sodium 136 mmol/L (137-145)
[2024-01-24 17:50] VITALS: BP 115/76; PULSE 72; RESP 16; O2SAT 95
[2024-01-24] MEDS: SODIUM CHLORIDE 0.9% 1,000 ML 1000 ML IV (17:51)
[2024-01-24] MEDS: POTASSIUM CHLORIDE 20 MEQ TAB PO (18:00)
== END 2024-01-24 18:27 | disposition home or self-care (01) ==
PROVIDERS: Emergency Provider Physician Assistant Medical; PCP Family Medicine
DX: S39.011A Strain of muscle, fascia and tendon of abdomen, initial encounter (principal); K40.90 Unilateral inguinal hernia, without obstruction or gangrene, not specified as recurrent; E87.6 Hypokalemia
CPT/HCPCS: 36415; 71046; 74019; 74177; 80048; 85025; 96360; 99284; Q9967

== ENCOUNTER → 2024-02-11 15:05 | Outpatient (CLI) | payer MEDICARE, SELFPAY ==
[2024-02-11 16:30] LABS: HEMOLYSIS < 15 (0-50); Iron 53 ug/dL (49-181)
[2024-02-11 16:36] LABS: Alanine Aminotransferase 18 IU/L (<50); Albumin 4.6 g/dL (3.5-5.0); Albumin Globulin Ratio 1.4 (1.0-2.8); Alkaline Phosphatase 81 U/L (38-126); Aspartate Aminotransferase 24 IU/L (17-59); BUN Creatinine Ratio 23.9 (6-22); Bilirubin Total 0.3 mg/dL (0.2-1.3); Blood Urea Nitrogen 16 mg/dL (9-20); Calcium 9.6 mg/dL (8.4-10.2); Carbon Dioxide 30 mmol/L (22-32); Chloride 102 mmol/L (98-107); Estimated Glomerular Filt Rate > 60 mL/min (>60); Globulin 3.3 g/dL (1.7-4.1); Glucose 107 mg/dL (80-110); HEMOLYSIS < 15 (0-50); Potassium 3.2 mmol/L (3.4-5.1); Sodium 141 mmol/L (137-145); Total Protein 7.9 g/dL (6.3-8.2)
[2024-02-11 16:39] LABS: Add Manual Diff / Slide Review NO; Basophils Absolute Auto 0 /uL (0-100); Basophils Percent Auto 0.2 % (0-2); Eosinophils Absolute Auto 300 /uL (0-450); Eosinophils Percent Auto 2.9 % (2-4); Hematocrit 38.8 % (41-53); Hemoglobin 12.7 g/dL (13.5-17.5); Lymphocytes Absolute Auto 2300 /uL (1100-4500); Lymphocytes Percent Auto 25.6 % (25-40); Mean Corpuscular HGB Conc 32.8 % (30-36); Mean Corpuscular Hemoglobin 25.7 PG (26-34); Mean Corpuscular Volume 78.6 fL (80-100); Monocytes Absolute Auto 900 /uL (0-900); Monocytes Percent Auto 9.5 % (3-14); Neutrophils Absolute Auto 5500 /uL (1500-7000); Neutrophils Percent Auto 61.8 % (50-75); Platelet Count 448 X10^3/uL (150-400); Red Blood Cell Count 4.94 X10^6/uL (4.5-5.9); Red Cell Distribution Width 16.3 % (11.6-14.8)
[2024-02-11 16:41] LABS: Percent Iron Saturation 14 % (20-50); Total Iron Binding Capacity 378 ug/dL (261-462); Transferrin 289 mg/dL (206-381)
[2024-02-11 17:07] LABS: Ferritin 14 ng/mL (18-464)
== END ==
PROVIDERS: PCP Family Medicine; Referring Provider Physician Assistant; Visit Provider Physician Assistant
DX: E87.6 Hypokalemia (principal); D50.9 Iron deficiency anemia, unspecified
CPT/HCPCS: 80053; 82728; 83540; 83550; 85025

== ENCOUNTER → 2024-03-10 10:07 | Outpatient (CLI) | payer MEDICARE, SELFPAY ==
--- NOTE | 2024-03-10 10:09 | DI.RAD.S_ITS ---
PROCEDURE: XR CERVICAL SPINE 4V OR 5V INDICATIONS: NECK PAIN TECHNIQUE: 5 views of the cervical spine acquired. COMPARISON: None. FINDINGS: Bones: C2-T5 posterior fixation hardware. T1 corpectomy with metallic strut graft placement and C7-T2 anterior fixation hardware. Orthopedic hardware is in expected position. Orthopedic hardware is intact. No fractures or dislocations to the T1 level. Oblique images demonstrate no severe bony foraminal stenoses. Soft tissues: No prevertebral soft tissue swelling. IMPRESSION: Postsurgical changes. No acute osseous lesion. If symptoms and/or clinical suspicion for pathology persists, evaluation with CT or MRI should be considered for further assessment. Dictated by: Urmila Dodge MD, PhD on 03/10/2024 at 10:29 Approved by: Urmila Dodge MD, PhD on 03/10/2024 at 10:31
[2024-03-10 11:15] LABS: BUN Creatinine Ratio 26.4 (6-22); Blood Urea Nitrogen 19 mg/dL (9-20); Calcium 9.4 mg/dL (8.4-10.2); Carbon Dioxide 27 mmol/L (22-32); Chloride 105 mmol/L (98-107); Estimated Glomerular Filt Rate > 60 mL/min (>60); Glucose 153 mg/dL (80-110); HEMOLYSIS < 15 (0-50); Potassium 3.5 mmol/L (3.4-5.1); Sodium 139 mmol/L (137-145)
== END ==
PROVIDERS: Physician Assistant; PCP Family Medicine; Referring Provider Anesthesiology; Visit Provider Anesthesiology
DX: M54.2 Cervicalgia (principal); M54.9 Dorsalgia, unspecified; E87.6 Hypokalemia; I10 Essential (primary) hypertension; G89.29 Other chronic pain; Z98.1 Arthrodesis status
CPT/HCPCS: 36415; 72050; 80048

== ENCOUNTER → 2024-06-01 09:47 | Outpatient (CLI) | payer MEDICARE, SELFPAY ==
--- NOTE | 2024-06-01 09:48 | DI.CT.S_ITS ---
PROCEDURE: CT CERVICAL SPINE WO CON INDICATIONS: OCCIPITAL NEURALGIA / S/P CERVICAL FUSION TECHNIQUE: Noncontrast 3 mm thick sections acquired from the skull base to the T4 level. Sagittal and coronal reformats were then constructed. For radiation dose reduction, the following was used: automated exposure control, adjustment of mA and/or kV according to patient size. COMPARISON: [facility], CT, CT SOFT TISSUE NECK W CON, 01/10/2023, 1:26. [facility], CR, XR CERVICAL SPINE 4V OR 5V, 03/10/2024, 10:08. FINDINGS: Image quality: Diagnostic Bones: Redemonstration of long segment posterior spinal fusion of the cervical thoracic spine extending from the level of C2 through T6 with corpectomy at C7-T1. There is a metallic structure graft noted at the C7-T1 level. Anterior fusion hardware noted from C6 through T2. No CT evidence to suggest hardware failure or loosening. Posterior decompression extending from the level of C3 through C7. Chronic appearing anteriorly displaced type 1 odontoid fracture of C2. This is unchanged compared to CT dated January 10, 2023. Craniocervical junction is intact. Visualized portions of the upper sternum and ribs appear intact. Stable postsurgical alignment. No acute fracture seen. No acute compression fractures. Severe spondylitic changes at C6-7. Soft tissues: Prevertebral soft tissues are normal in thickness. No paravertebral hematomas. No apical pneumothoraces. No mediastinal adenopathy. Coronary atherosclerosis. No suspicious adenopathy of the neck. No suspicious fluid collections. No focal consolidation in the imaged portions of the lungs bilaterally. No thyroid nodules which require sonographic follow up, per consensus guidelines. IMPRESSION: CT cervical spine without acute abnormalities or traumatic malalignment. Stable postsurgical changes and postsurgical alignment status post long segment posterior spinal fusion of C2 through T6 and anterior spinal fusion from C6 through T2. No CT evidence for hardware failure or loosening. Other chronic/nonacute findings as above. Dictated by: Enrike Naidu M.D. on 06/02/2024 at 18:47 Approved by: Enrike Naidu M.D. on 06/02/2024 at 19:01
== END ==
PROVIDERS: PCP Family Medicine; Referring Provider Physical Medicine & Rehabilitation; Visit Provider Physical Medicine & Rehabilitation
DX: S12.120A Other displaced dens fracture, initial encounter for closed fracture (principal); M54.81 Occipital neuralgia; Z98.1 Arthrodesis status
CPT/HCPCS: 72125

== ENCOUNTER → 2024-07-19 08:03 | Outpatient (CLI) | payer MEDICARE, SELFPAY ==
--- NOTE | 2024-07-19 08:04 | DI.US.S_ITS ---
PROCEDURE: US ABDOMEN LIMITED INDICATIONS: LEFT LATERAL ABDOMINAL BULGE TECHNIQUE: Real-time focused scanning was performed of the abdomen, with image documentation. COMPARISON: [facility], CT, CT ABDOMEN PELVIS W CON, 01/24/2024, 17:19. FINDINGS: Left upper quadrant abdominal wall bulge was seen physically by the retail business manager, however no abnormalities are seen within the area of concern. No masses, free fluid or abdominal defects. IMPRESSION: No abnormalities are seen within the area of concern. Dictated by: Mikey Blount M.D. on 07/19/2024 at 14:50 Approved by: Mikey Blount M.D. on 07/19/2024 at 14:52
== END ==
LOC: US 08:03
PROVIDERS: PCP Family Medicine; Referring Provider Family Medicine; Visit Provider Family Medicine
DX: R19.02 Left upper quadrant abdominal swelling, mass and lump (principal)
CPT/HCPCS: 76705